=== PATIENT | male | born 1950 | race Caucasian/White ===

== ENCOUNTER 2021-02-19 16:16 | Inpatient (IN) | payer OTHER, SELFPAY ==
[2021-02-19] VITALS (7 sets, daily range): BP systolic 104–157; BP diastolic 37–89; PULSE 78–85; RESP 16–24; TEMP 36.4–38.2; O2SAT 87–94; BMI 26.4; BMI 24.5
--- NOTE | 2021-02-19 16:32 | EKG12_ITS ---
Test Reason : Blood Pressure : / mmHG Vent. Rate : 081 BPM Atrial Rate : 081 BPM P-R Int : 190 ms QRS Dur : 074 ms QT Int : 356 ms P-R-T Axes : 034 -08 -07 degrees QTc Int : 413 ms Somatic/Motion Artifact Normal sinus rhythm Confirmed by CHRISTINA GOMEZ, ELOY ([id number]), editor greeting card SHIRLEY OROPEZA ([id number]) on 02/21/2021 9:38:41 AM Referred By: Confirmed By:ELOY VASQUEZ MD
--- NOTE | 2021-02-19 16:34 | EDS_ITS ---
HPI History of Present Illness Chief Complaint: Shortness of Breath Informant: patient and spouse/S.O. Narrative Narrative: 70-year-old male presenting to the emergency department with shortness of breath. Patient states that 10 days ago he began to feel ill. 8 d ays ago he was tested at pharmacy and tested positive for Covid. He notes fevers chills shortness of breath diarrhea. Decreased p.o. intake and generalized weakness. states they've been monitoring his oxygen levels and it steadily declined until he was about 90% today. [facility] and [facility] that he come to emergency. Patient has no known lung conditions. He has a history of diabetes and hypertension. Patient is unvaccinated against Covid [facility] Medical History (Updated 02/19/21 @ 18:[address] Mani Karimi DO) Diabetes Hypertension Home Medications levothyroxine 25 mcg PO DAILY 02/19/21 [History Last Taken Unknown] lisinopril 20 mg PO DAILY 02/19/21 [History Last Taken Unknown] Allergy/AdvReac Type Severity Reaction Status Date / Time No Known Allergies Allergy Verified 02/19/21 16:19 Social History (Updated 02/19/21 @ 16:[address] Mani Karimi DO) current gender identity: male Smoking Status: Smoker, status unknown substance use type: does not use ROS ROS ED ROS Narrative Generalized fatigue Constitutional Constitutional ED: Reports chills and fever(s); Denies weight loss Eyes Eyes: Denies change in vision or diplopia ENT ENT ED: Denies ear pain, rhinorrhea or sore throat Cardiovascular Cardiovascular: Denies chest pain, orthopnea, palpitations or racing heartbeat Respiratory/Chest Respiratory/Chest: Reports cough, dyspnea, dyspnea on exertion and sputum; Denies orthopnea Gastrointestinal Gastrointestinal: Reports diarrhea and nausea; Denies abdominal pain or vomiting Genitourinary Genitourinary ED: Denies dysuria, hematuria or urinary frequency Musculoskeletal Musculoskeletal: Reports myalgias; Denies arthralgias Integumentary Denies abscess or rash Neurologic Neurologic: Reports headache(s) Psychiatric Psychiatric: Denies anxiety, depression, suicidal ideation or suicidal thoughts Endocrine Endocrinology: Denies polydipsia, polyphagia or polyuria Allergic/Immunologic Allergic/Immunologic ED: Denies mouth swelling, tongue swelling or urticaria EXAM Physical Exam Const Vital Signs: 02/19/21 16:17 02/19/21 16:38 02/19/21 18:09 Temperature 97.6 F L Temperature Source Temporal Pulse Rate 79 85 Respiratory Rate 16 24 H Respiratory Effort Normal Non-Labored Respiratory Depth Normal Respiratory Pattern Normal Blood Pressure 157/89 H 104/37 L Blood Pressure Mean 111 59 Pulse Ox 93 92 92 Oxygen Delivery Method Room Air Room Air Nasal Cannula Oxygen Flow Rate (L/min) 3 Positive well nourished and well developed General Appearance ED: well developed HEENT Reports normocephalic, head/scalp atraumatic, TM's clear and moist mucous membranes atraumatic Tympanic Membrane ED: Yes TM's clear Eyes PERRL and EOMs intact bilaterally Neck no lymphadenopathy, supple and no JVD Resp normal respiratory effort and clear to auscultation bilaterally Cardio regular rate, regular rhythm and no murmurs GI normal to inspection, nondistended, normoactive bowel sounds and non-tender Auscultation: normoactive bowel sounds Palpation: soft Back/Spine no CVA tenderness, normal ROM and normal to inspection Extremity normal to inspection General Extremety ED: Negative for edema General Extremity: Negative for edema Neuro oriented x3 and CN's II-XII intact bilaterally Sensorium / Orientation: alert Motor Exam: strength 5/5 throughout Psych mental status grossly normal Mood & Affect: Negative for depressed or tearful Skin no rashes or lesions noted and no wounds Rashes: no rashes MDM MDM MDM Narrative Medical decision making narrative: Patient ambulates and his oxygen levels dropped from 93% to 89%. However sitting in the bed the patient is 87% on room air was placed on 3 L supplemental oxygen. Patient's white count 6.5. Lactic acid 2.4. My interpretation of his chest x-ray is multifocal areas of inflammation consistent with COVID-19. Glucose 157. Patient received a dose of Decadron. He has [facility] and I am unable to get him home oxygen tonight. I will speak with the hospitalist regarding admission Lab Data Labs: Laboratory Results - last 24 hr 02/19/21 02/19/21 02/19/21 16:40 16:40 16:40 WBC 6.5 RBC 5.46 Hgb 16.0 Hct 49.0 MCV 89.7 MCH 29.3 MCHC 32.7 RDW Std Deviation 42.9 RDW Coeff of Dede 13.1 Plt Count 198 MPV 10.2 Immature Gran % (Auto) 0.600 Neut % (Auto) 67.2 Lymph % (Auto) 18.1 L [place] % (Auto) 13.6 H Eos % (Auto) 0.2 Baso % (Auto) 0.3 Absolute Neuts (auto) 4.4 Absolute Lymphs (auto) 1.17 Nucleated RBC % 0 Sodium 133 L Potassium 4.2 Chloride 100 Carbon Dioxide 28.0 Anion Gap 5 BUN 16 Creatinine 1.39 H Estim Creat Clear Calc 47.16 Est GFR (MDRD) Af Amer 65 Est GFR (MDRD) Non-Af 53 L BUN/Creatinine Ratio 11.5 Glucose 157 H Lactic Acid 2.4 H* Calcium 8.7 Total Bilirubin 0.40 AST 244 H ALT 209 H Alkaline Phosphatase 101 Troponin I High Sens 16 Total Protein 7.6 Albumin 3.5 Globulin 4.1 Albumin/Globulin Ratio 0.9 Radiography Diagnostic Testing: Clinical Impression(s) from Imaging Studies Chest X-Ray 02/19/21 17:19 IMPRESSION: Hazy opacities in the right mid lung could represent infection in the correct clinical setting. Electronically Signed: Ellis Peralta MD at 17:38 EST Tel , Service support , EKG Initial EKG: Attestation: I personally reviewed and interpreted this EKG as follows: Comments: Normal sinus rhythm with a ventricular rate of 81 bpm. Discharge Plan Triage Chief Complaint: Shortness of Breath ED Provider: Mani Karimi Dx/Rx/DC Orders Clinical Impression: COVID-19, Acute hypoxemic respiratory failure due to COVID-19 Prescriptions: No Action lisinopril 20 mg tablet 20 mg PO DAILY RF: 0 levothyroxine 25 mcg tablet 25 mcg PO DAILY RF: 0 [facility] Referrals: Willie Ng MD [STAFF PHYSICIAN] - Disposition Disposition: Acute Care Hospital [facility]
[2021-02-19 17:02] LABS: Absolute Lymphocyte Count 1.17 X10^3/uL (0.83-4.51); Absolute Neutrophil Count 4.4 X10^3/uL (2.0-7.7); Basophil# 0.02 X10^3/uL; Basophil% 0.3 % (0-1); Eosinophil# 0.01 X10^3/uL; Eosinophils% 0.2 % (0-5); Lymphocyte # 1.17 X10^3/ul (0.83-4.51); Lymphocyte % 18.1 % (19-41); Mean Corp Hgb Conc 32.7 g/dL (32-36); Mean Corpuscular Hgb 29.3 pg (27.0-32.0); Mean Corpuscular Volume 89.7 fL (80-94); Mean Platelet Vol. 10.2 fl (6.2-12.0); Monocyte# 0.88 X10^3/uL; Monocyte% 13.6 % (0-10); NRBC Flagged by Analyzer 0 % (0-5); Neutrophil # 4.35 X10^3/uL (2.7-7.7); Neutrophil % 67.2 % (47-70); Platelet Count 198 K/mm3 (150-450); RBC Distribution Width CV 13.1 % (11.6-14.6); RBC Distribution Width SD 42.9 fl (35.1-43.9); Red Blood Count 5.46 M/mm3 (4.6-6.2); White Blood Count 6.5 K/mm3 (4.4-11.0)
--- NOTE | 2021-02-19 17:19 | RAD_ITS ---
INDICATION: cough EXAMINATION/TECHNIQUE: X-RAY - XR Chest 1 View COMPARISON: None. FINDINGS: Hazy opacities in the right midlung. The cardiomediastinal silhouette is unremarkable. No pleural effusion or pneumothorax. Degenerative changes of the thoracic spine. RAD/Chest 1 View (Portable) IMPRESSION: Hazy opacities in the right mid lung could represent infection in the correct clinical setting. Electronically Signed: Ellis Peralta MD at 17:38 EST Tel , Service support ,
[2021-02-19 17:23] LABS: ALB/GLOB Ratio 0.9 RATIO (0.9-2.4); AST(SGOT) 244 U/L (15-37); Alanine Aminotransfer ALT/SGPT 209 U/L (16-61); Albumin, Serum 3.5 g/dL (3.2-5.0); Alkaline Phosphatase 101 U/L (45-117); Anion Gap 5 (5-15); BUN 16 mg/dL (7-18); BUN/Creat Ratio 11.5 RATIO (10-20); Calcium,Total 8.7 mg/dL (8.5-10.1); Chloride 100 mmol/L (98-107); Creatinine, Serum 1.39 mg/dL (0.70-1.30); EST Glomerular Filtration Rate 53 mL/min (>60); Est Glom Filt Rate - Afr Amer 65 mL/min (>60); Estimated Creatinine Clearance 47.16 ml/min; Globulin 4.1 g/dL (2.2-4.2); Glucose 157 mg/dL (74-106); Potassium 4.2 mmol/L (3.5-5.1); Protein, Total 7.6 g/dL (6.4-8.2); Sodium Level 133 mmol/L (136-145); Troponin-I HS 16 pg/mL (3.0-78.0)
[2021-02-19 17:42] LABS: Lactic Acid 2.4 mmol/L (0.4-1.9)
[2021-02-19] MEDS: dexAMETHasone 4 MG Tablet 6 MG PO (17:50)
--- NOTE | 2021-02-19 18:55 | EKG12_ITS ---
Test Reason : Blood Pressure : / mmHG Vent. Rate : 078 BPM Atrial Rate : 078 BPM P-R Int : 166 ms QRS Dur : 078 ms QT Int : 366 ms P-R-T Axes : 004 -04 -10 degrees QTc Int : 417 ms Normal sinus rhythm Normal ECG Confirmed by CHRISTINA GOMEZ, ELOY ([id number]), photographic editor SHIRLEY OROPEZA ([id number]) on 02/21/2021 10:02:04 AM Referred By: YASEMIN Confirmed By:ELOY VASQUEZ MD
--- NOTE | 2021-02-19 19:02 | HP.PCM.HOS_ITS ---
HPI - General General Date of Admission: 02/19/21 HPI Narrative EVANS SANDERSON, is a 70 M with history of diabetes mellitus type 2 and hypertension came to ER with 8 days symptoms of fatigue, worsening cough and exertional dyspnea and chills. Patient denies any fever. Patient has history of smoking but he quit 25 years ago. Patient tested positive of COVID-19 on [facility]. He is not vaccinated but his is vaccinated. His also got sick with the symptoms of COVID-19 but she recovered. He also complains of decreased p.o. intake but denies vomiting or diarrhea. Generalized weakness. His is monitoring pulse ox and it is steadily declined below 90% and therefore came to ER In ED, patient is 87% on room air and 92% on 3 L of oxygen, respiratory 24 per night. Patient does not have leukocytosis, lymphopenia. His creatinine 1.39, baseline 1.2. LA 2.4. ALT AST elevated. Chest x-ray shows haziness in the right midlung. Patient denies chest pain. Troponin negative. [facility] Medical History Diabetes Hypertension Home Medications cholecalciferol (vitamin D3) 100 mcg PO DAILY 02/19/21 [History Last Taken 02/19/21] levothyroxine 25 mcg PO DAILY 02/19/21 [History Last Taken 02/18/21] lisinopril 20 mg PO DAILY 02/19/21 [History Last Taken 02/19/21] metformin 500 mg PO BID 02/19/21 [History Last Taken 02/18/21] Allergy/AdvReac Type Severity Reaction Status Date / Time No Known Allergies Allergy Verified 02/19/21 16:19 Social History current gender identity: male Smoking Status: Smoker, status unknown substance use type: does not use ROS ROS Narrative Constitutional: Reports fatigue and weakness. No fever. HEENT: Reports systems reviewed and no addt'l complaints, except as documented Respiratory/Chest: Exertional dyspnea. Rest as mentioned in HPI Gastrointestinal: Denies coffee ground emesis, hematemesis or vomiting Genitourinary: Denies burning urination or new urinary tract symptoms Musculoskeletal: Reports generalized muscle aches. Neurologic: Denies seizure-like activity skin: No ulcer. No rash Endocrinology: Reports systems reviewed and no addt'l complaints, except as documented Hematologic/Lymphatic: Reports systems reviewed and no addt'l complaints, except as documented Rest 12 ROS are negative except as mentioned in HPI Vital Signs Vital Signs Vital Signs: 02/19/21 16:17 02/19/21 16:38 02/19/21 18:09 Temperature 97.6 F L Temperature Source Temporal Pulse Rate 79 85 Respiratory Rate 16 24 H Respiratory Effort Normal Non-Labored Respiratory Depth Normal Respiratory Pattern Normal Blood Pressure 157/89 H 104/37 L Blood Pressure Mean 111 59 Pulse Ox 93 92 92 Oxygen Delivery Method Room Air Room Air Nasal Cannula Oxygen Flow Rate (L/min) 3 02/19/21 18:53 Temperature 97.8 F Temperature Source Temporal Pulse Rate 84 Respiratory Rate 24 H Respiratory Effort Respiratory Depth Respiratory Pattern Blood Pressure 135/83 H Blood Pressure Mean 100 Pulse Ox 93 Oxygen Delivery Method Oxygen Flow Rate (L/min) Weight Weight: 173 lb 11.588 oz Body Mass Index (BMI) 26.4 Physical Exam Narrative General: Fatigue. Alert, Oriented x3, Cooperative HEENT: Atraumatic, PERRLA, EOMI, Normocephalic Oral: No Gingival or Mucosal Lesions/ Ulcerations Neck: Supple, No JVD, Negative Carotid Bruits Lungs: Air entry diminished in bilateral lung bases. Bilateral crepitations. Mild tachypnea and hypoxia. Cardiovascular: Regular rate, Regular Rhythm, Normal S1, Normal S2, No murmurs Abdomen: Bowel Sounds Present, Soft, Non Tender, Non-Distended : No renal angle tenderness. No suprapubic tenderness. Extremities: No edema, Capillary Refill Less than 3 Seconds Skin: No rashes, No breakdown Musculoskeletal: No Tenderness to Palpation of Joints or Extremities Neurological: Cranial nerves II-XII grossly intact, DTR 2+/4 and Symmetrical, Neuro grossly intact Psych/Mental Status: Normal Affect, Appropriate. Results Lab / Micro Data Result Diagrams: 02/19/21 16:40 02/19/21 16:40 Labs: Laboratory Results - last 24 hr 02/19/21 16:40: WBC 6.5, RBC 5.46, Hgb 16.0, Hct 49.0, MCV 89.7, MCH 29.3, MCHC 32.7, RDW Std Deviation 42.9, RDW Coeff of Dede 13.1, Plt Count 198, MPV 10.2, Immature Gran % (Auto) 0.600, Neut % (Auto) 67.2, Lymph % (Auto) 18.1 L, [place] % (Auto) 13.6 H, Eos % (Auto) 0.2, Baso % (Auto) 0.3, Absolute Neuts (auto) 4.4, Absolute Lymphs (auto) 1.17, Nucleated RBC % 0 02/19/21 16:40: Sodium 133 L, Potassium 4.2, Chloride 100, Carbon Dioxide 28.0, Anion Gap 5, BUN 16, Creatinine 1.39 H, Estim Creat Clear Calc 47.16, Est GFR (MDRD) Af Amer 65, Est GFR (MDRD) Non-Af 53 L, BUN/Creatinine Ratio 11.5, Glucose 157 H, Calcium 8.7, Total Bilirubin 0.40, AST 244 H, ALT 209 H, Alkaline Phosphatase 101, Troponin I High Sens 16, Total Protein 7.6, Albumin 3.5, Globulin 4.1, Albumin/Globulin Ratio 0.9 02/19/21 16:40: Lactic Acid 2.4 H* Radiology Impression Chest X-Ray 02/19/21 17:19 IMPRESSION: Hazy opacities in the right mid lung could represent infection in the correct clinical setting. Electronically Signed: Ellis Peralta MD at 17:38 EST Tel , Service support , Assessment & Plan Assessment/Plan (1) Acute hypoxemic respiratory failure due to COVID-19: PLAN: 1. Acute hypoxic respiratory failure secondary to right lung COVID- 19 pneumonia: Patient is being admitted on [facility] floor. Oxygen therapy to keep pulse ox more than 90%. Patient is started on dexamethasone. Will continue it. Is out of window of remdesivir. If patient needs airflow, BiPAP or high oxygen requirement, will need ID consult for baricitinib. Incentive spirometry, Mucinex and Pep. Pneumonia work-up including urinary antigens and sputum culture ordered. Rapid Covid antigen ordered as he was tested [facility] outside [facility]. Inflammatory markers including procalcitonin ordered. Lovenox 30 mg subcu twice daily. 2. Diabetes mellitus type 2: Hold Metformin. Accu-Cheks vesicocele at bedtime, regimen of sliding scale. 3. Hypertension and hypothyroidism: Hold lisinopril and resume once creatinine is on baseline. TSH tomorrow a.m. Levothyroxine continued. 4. CKD stage IIIa: IV fluid Ringer lactate. Monitor kidney function. Patient is dehydrated. Living will/advanced directive/end of life care: Patient does have living will or advanced directive. His is power of prosecuting attorney for health. After discussion of benefits/risks procedures involved with full code, DNR CC arrest and DNR CC, the patient and his opted for full code. Patient does want artificial life support including intubation, tube feed, ventilator and/chest compression, central venous catheter, vasopressor and DC shock if needed Total time spent in [id number] encounter in discussion of advanced directive 16 minutes. Charges/Coding Visit Charges Inpatient E&M: 60336 Init Hosp L3 Procedures Hospitalists Procedures: 63002 Advncd Care Plan 30 Min
[2021-02-19 19:20] LABS: International Normalized Ratio 0.9; Prothrombin Time (Protime)PT. 11.6 SECONDS (11.7-14.9)
[2021-02-19 19:21] LABS: Fibrinogen 486 mg/dl (203-444)
[2021-02-19 19:36] LABS: BNP,B-Type NATRIURETIC PEPTIDE 24.9 pg/mL (0-100); Magnesium 2.3 mg/dL (1.6-2.6)
[2021-02-19 19:37] LABS: CPK Total, Creatine Kinase 81 U/L (39-308); LDH 498 U/L (87-241)
[2021-02-19 19:42] LABS: D-Dimer Quantitative (DVT/PE) 0.66 FEU/ug/m (0.27-0.49)
[2021-02-19 19:45] LABS: Procalcitonin 0.11 ng/mL (0.00-0.09)
--- NOTE | 2021-02-19 20:20 | PCS.PANDOC ---
PANDEMIC DOCUMENTATION INITIATED: Date: 11/20/2020 Time: 1900 Emergency documentation initiated 02/19/21 @ 2020
[2021-02-19 20:52] LABS: Reflex Lactate? Y
[2021-02-19] MEDS: Lactated Ringers 1,000 ML 100 ML IV (20:57)
[2021-02-19] MEDS: guaiFENesin 1,200 MG Tablet 1200 MG PO (20:57)
[2021-02-19] MEDS: Acetaminophen 325 MG Tablet 650 MG PO (20:57)
[2021-02-19] MEDS: Enoxaparin 30 MG/0.3 ML Syringe SC (20:57)
[2021-02-19] MEDS: 0.9% Saline Lock 10 ML Syringe IV (21:49)
[2021-02-20] VITALS (7 sets, daily range): BP systolic 122–139; BP diastolic 71–86; PULSE 61–66; RESP 16–18; TEMP 36.2–36.6; O2SAT 92–97
[2021-02-20] MEDS: Levothyroxine 25 MCG TABLET PO (06:28)
[2021-02-20 06:45] LABS: Bedside Glucose 206 mg/dL (70-110)
[2021-02-20 08:02] LABS: Absolute Lymphocyte Count 0.99 X10^3/uL (0.83-4.51); Absolute Neutrophil Count 2.2 X10^3/uL (2.0-7.7); Basophil# 0.01 X10^3/uL; Basophil% 0.3 % (0-1); Hematocrit 42.8 % (40-54); Hemoglobin 14.3 g/dL (13.0-16.5); Lymphocyte # 0.99 X10^3/ul (0.83-4.51); Lymphocyte % 24.9 % (19-41); Mean Corp Hgb Conc 33.4 g/dL (32-36); Mean Corpuscular Hgb 29.9 pg (27.0-32.0); Mean Corpuscular Volume 89.4 fL (80-94); Mean Platelet Vol. 10.5 fl (6.2-12.0); Monocyte# 0.75 X10^3/uL; Monocyte% 18.9 % (0-10); NRBC Flagged by Analyzer 0 % (0-5); Neutrophil # 2.18 X10^3/uL (2.7-7.7); Neutrophil % 54.9 % (47-70); POSITIVE MORPHOLOGY YES; Platelet Count 186 K/mm3 (150-450); RBC Distribution Width SD 42.8 fl (35.1-43.9); Red Blood Count 4.79 M/mm3 (4.6-6.2)
[2021-02-20 08:03] LABS: Differential Indicated SCAN CRITERIA MET
[2021-02-20 08:25] LABS: Atypical Lymphocyte 1+ %
[2021-02-20 09:26] LABS: ALB/GLOB Ratio 0.7 RATIO (0.9-2.4); AST(SGOT) 278 U/L (15-37); Alanine Aminotransfer ALT/SGPT 253 U/L (16-61); Albumin, Serum 2.6 g/dL (3.2-5.0); Alkaline Phosphatase 85 U/L (45-117); Anion Gap 9 (5-15); BUN 22 mg/dL (7-18); BUN/Creat Ratio 17.1 RATIO (10-20); Calcium,Total 8.2 mg/dL (8.5-10.1); Chloride 102 mmol/L (98-107); Creatinine, Serum 1.29 mg/dL (0.70-1.30); EST Glomerular Filtration Rate 58 mL/min (>60); Est Glom Filt Rate - Afr Amer 71 mL/min (>60); Estimated Creatinine Clearance 50.81 ml/min; Globulin 3.8 g/dL (2.2-4.2); Glucose 179 mg/dL (74-106); Potassium 4.5 mmol/L (3.5-5.1); Protein, Total 6.4 g/dL (6.4-8.2); Sodium Level 134 mmol/L (136-145); Thyroid Stim Hormone (TSH) 1.39 uIU/mL (0.358-3.74)
[2021-02-20] MEDS: dexAMETHasone 4 MG Tablet 6 MG PO (10:35)
[2021-02-20] MEDS: guaiFENesin 1,200 MG Tablet 1200 MG PO ×2 (10:35→22:43)
[2021-02-20] MEDS: Enoxaparin 30 MG/0.3 ML Syringe SC ×2 (10:35→22:50)
[2021-02-20] MEDS: Cholecalciferol (VIT D3) 25 MCG TABLET (1,000 UNITS) 100 MCG PO (10:35)
--- NOTE | 2021-02-20 14:23 | PCM.PN.HOSP ---
Subjective Subjective Doing well, no issues overnight. Feels better than when he came in. Objective Data Objective Data Vital Signs: Vital Signs Temp Pulse Resp BP Pulse Ox 97.7 F L 63 16 127/71 H 94 02/20/21 10:37 02/20/21 10:37 02/20/21 10:37 02/20/21 10:37 02/20/21 10:37 Oxygen Flow Rate (L/min) 2 Oxygen Delivery Method Nasal Cannula Weight: 161 lb 13.109 oz Body Mass Index (BMI) 24.5 Intake & Output: Intake and Output for Last 24 Hours 02/19/21 02/20/21 02/21/21 03:59 03:59 03:59 Intake Total 200 / 200 1260 / 1260 Output Total 350 / 350 650 / 650 Balance -150 / -150 610 / 610 Medical Nutrition Assessment Dietitian: Malnutrition Criteria Met Start: 02/20/21 10:17 Freq: Status: Active Protocol: Document 02/20/21 10:17 AG (Rec: 02/20/21 10:17 AG Desktop) Nutrition Malnutrition Evidence of Malnutrition Exists Yes Malnutrition (severe): Acute Illness/Injury Evidenced By Suboptimal Energy Intake ( Severe),Weight Loss (Severe) Clinical Problem Acute Disease or Injury Related Malnutrition Etiology severe, acute malnutrition r/t inadequate energy intake during COVID-19 illness Signs/Symptoms as evidenced by estimated PO intake meeting <50% of estimated nutritional needs x 1 week, unintentional wt loss of 8.2#/4.8% x 1 week Status Active Problem Recommendation Dietitian Recommendations/Changes Will change diet to carbohydrate controlled and add 4oz Glucerna ONS w/ meals for additional calories/ protein if consumed d/t acute malnutrition Lab / Micro Data Result Diagrams: 02/20/21 07:25 02/20/21 07:25 Labs: Laboratory Results - last 24 hr 02/19/21 16:40: WBC 6.5, RBC 5.46, Hgb 16.0, Hct 49.0, MCV 89.7, MCH 29.3, MCHC 32.7, RDW Std Deviation 42.9, RDW Coeff of Dede 13.1, Plt Count 198, MPV 10.2, Immature Gran % (Auto) 0.600, Neut % (Auto) 67.2, Lymph % (Auto) 18.1 L, [place] % (Auto) 13.6 H, Eos % (Auto) 0.2, Baso % (Auto) 0.3, Absolute Neuts (auto) 4.4, Absolute Lymphs (auto) 1.17, Nucleated RBC % 0 02/19/21 16:40: Sodium 133 L, Potassium 4.2, Chloride 100, Carbon Dioxide 28.0, Anion Gap 5, BUN 16, Creatinine 1.39 H, Estim Creat Clear Calc 47.16, Est GFR (MDRD) Af Amer 65, Est GFR (MDRD) Non-Af 53 L, BUN/Creatinine Ratio 11.5, Glucose 157 H, Calcium 8.7, Total Bilirubin 0.40, AST 244 H, ALT 209 H, Alkaline Phosphatase 101, Troponin I High Sens 16, Total Protein 7.6, Albumin 3.5, Globulin 4.1, Albumin/Globulin Ratio 0.9 02/19/21 16:40: Lactic Acid 2.4 H* 02/19/21 16:40: Magnesium 2.3 02/19/21 16:40: PT 11.6 L, INR 0.9, Fibrinogen 486 H, D-Dimer Quant (PE/DVT) 0.66 H* 02/19/21 16:40: Lactate Dehydrogenase 498 H, Total Creatine Kinase 81, C-React Prot Ext Range 16.00 H 02/19/21 16:40: B-Natriuretic Peptide 24.9 02/19/21 16:40: Procalcitonin 0.11 H 02/19/21 20:52: Lactic Acid 1.0 02/20/21 06:30: POC Glucose 206 H 02/20/21 07:25: Sodium 134 L, Potassium 4.5, Chloride 102, Carbon Dioxide 23.0, Anion Gap 9, BUN 22 H, Creatinine 1.29, Estim Creat Clear Calc 50.81, Est GFR (MDRD) Af Amer 71, Est GFR (MDRD) Non-Af 58 L, BUN/Creatinine Ratio 17.1, Glucose 179 H, Calcium 8.2 L, Phosphorus 4.0, Total Bilirubin 0.30, AST 278 H, ALT 253 H, Alkaline Phosphatase 85, Total Protein 6.4, Albumin 2.6 L, Globulin 3.8, Albumin/Globulin Ratio 0.7 L, TSH 1.39 02/20/21 07:25: WBC 4.0 L, RBC 4.79, Hgb 14.3, Hct 42.8, MCV 89.4, MCH 29.9, MCHC 33.4, RDW Std Deviation 42.8, RDW Coeff of Dede 13.0, Plt Count 186, MPV 10.5, Immature Gran % (Auto) 1.000 H, Neut % (Auto) 54.9, Lymph % (Auto) 24.9, [place] % (Auto) 18.9 H, Eos % (Auto) 0.0, Baso % (Auto) 0.3, Absolute Neuts (auto) 2.2, Absolute Lymphs (auto) 0.99, Nucleated RBC % 0, Atypical Lymphocytes 1+ Micro: Microbiology 02/19/21 21:40 Urine, Clean Catch Legionella Antigen - Final 02/19/21 21:40 Urine, Clean Catch Streptococcus pneumoniae Antigen (M - Final 02/19/21 20:30 Nasal Secretion SARS-CoV-2 Antigen (Rapid) - Final SARS-CoV-2 (COVID 19) Radiography Diagnostic Testing: Radiology Impression Chest X-Ray 02/19/21 17:19 IMPRESSION: Hazy opacities in the right mid lung could represent infection in the correct clinical setting. Electronically Signed: Ellis Peralta MD at 17:38 EST Tel , Service support , Physical Exam Const alert, oriented x3 and no apparent distress General Appearance: cooperative HEENT normocephalic and moist oral mucous membranes Eyes PERRL, EOMs intact bilaterally and conjunctivae normal Neck supple and no JVD Resp normal respiratory effort, no retractions and no use of accessory muscles Auscultation: crackles bilateral (Mild) base; Negative for rales, rhonchi or wheezes Cardio regular rate, regular rhythm, S1 normal heart sound, S2 normal heart sound and no murmurs GI soft to palpation, non-tender and non-distended; Negative for hepatosplenomegaly Extremity no clubbing, cyanosis or edema Skin no rashes or lesions noted Neuro no focal motor deficits and no sensory deficits noted Psych affect normal Appearance: appropriate Assessment & Plan Assessment/Plan (1) Acute hypoxemic respiratory failure due to COVID-19: PLAN: 1. Acute hypoxic respiratory failure secondary to right lung COVID-19 pneumonia -He is at around the 10-day dave on admission from symptoms therefore does not qualify for remdesivir -Continue with Decadron -We will continue to monitor respiratory status, is maintaining his oxygen saturations on 2 L nasal cannula, if he does get worse given the crackles may give him Lasix to diurese. He did come in with slightly elevated creatinine to 1.39 therefore we will give him another day of recovery prior to considering diuresis 2. Diabetes mellitus type 2/CKD 3a -Hold his Metformin, will place him on sliding scale insulin as well as long-acting insulin -Accu-Cheks AC at bedtime -Given the Decadron, will make adjustments as necessary 3. HTN -Blood pressure stable -We will hold lisinopril secondary to his elevated creatinine on admission and the potential need for Lasix 4. Hypothyroidism -Stable -Continue with Synthroid DVT: Lovenox Charges/Coding Visit Charges Inpatient E&M: 14675 Subs Hosp L2
--- NOTE | 2021-02-20 14:50 | CASEMGMT ---
Addendum entered by Radha Haley 02/20/21 15:31: TC to pt , she does not have the pt info still. Will wait until pt phone is charged and check back with pt for the positive covid result. Original Note: RN CM Assessment: Face to Face with pt for initial transition planning/care coordination assessment. RN CM introduced self and role at [facility], pt voices understanding and consents to assessment. Pt is A/O x4 and answers all questions appropriately at this time. Pt lying in bed with O2 on in no distress. Care providers, pharmacy, and demographics verified/updated. Admitting Dx: COVID 19 PNA PCP: Amy Sanders [place] Specialists: Pt denies. [facility]erred [facility] Insurance: [facility] benefit< MMO Prescription Benefit: yes LW/HPOA: Pt states he has a LW/DPOA and his is his DPOA, Beverly Benavidez. LNOK: Beverly Benavidez, Living Arrangements: Pt lives with in a split level home with 3 steps to enter. Pt reports being I in ADL' s and denies concerns at home. Transportation: Pt drives self and denies concerns with transportation. DME/HHC/SNF: Pt has grab bars in the bathroom, no other DME. Pt denies hx of HHC or SNF stays. Pt states his is also positive for COVID. States he was tested at [facility]. Pt unable to email this RN CM the result as his phone battery is . He states it is ok for this RN CM to contact his for the information needed. Pt does have family who can provide him with groceries and supplies. Pt has no preference for DME company, should pt need O2 at dc. Pt states no concerns with going home at time of dc. Pt states no further concerns/needs. CM to follow. Advised pt to ask CM if any further question/concerns/needs arise, voices understanding. Pt Goal: Home Plan: Home
[2021-02-20] MEDS: Insulin Lispro 100 UNIT/ML INSULN.PEN SC ×2 (15:37→22:42)
[2021-02-20 16:01] LABS: Bedside Glucose 221 mg/dL (70-110)
[2021-02-20 23:06] LABS: Bedside Glucose 209 mg/dL (70-110)
[2021-02-21] VITALS (7 sets, daily range): BP systolic 120–138; BP diastolic 70–81; PULSE 62–73; RESP 18; TEMP 36.6–38.2; O2SAT 86–95
--- NOTE | 2021-02-21 04:08 | PCS.PANDOC ---
PANDEMIC DOCUMENTATION INITIATED: Date: 11/20/2020 Time: 190
[2021-02-21] MEDS: Levothyroxine 25 MCG TABLET PO (06:39)
[2021-02-21 06:51] LABS: Bedside Glucose 141 mg/dL (70-110)
[2021-02-21 08:25] LABS: ALB/GLOB Ratio 0.7 RATIO (0.9-2.4); AST(SGOT) 183 U/L (15-37); Alanine Aminotransfer ALT/SGPT 242 U/L (16-61); Albumin, Serum 2.8 g/dL (3.2-5.0); Alkaline Phosphatase 95 U/L (45-117); Anion Gap 6 (5-15); BUN 26 mg/dL (7-18); BUN/Creat Ratio 19.7 RATIO (10-20); Calcium,Total 8.6 mg/dL (8.5-10.1); Chloride 102 mmol/L (98-107); Creatinine, Serum 1.32 mg/dL (0.70-1.30); EST Glomerular Filtration Rate 57 mL/min (>60); Est Glom Filt Rate - Afr Amer 69 mL/min (>60); Estimated Creatinine Clearance 49.66 ml/min; Glucose 130 mg/dL (74-106); Potassium 4.1 mmol/L (3.5-5.1); Protein, Total 6.8 g/dL (6.4-8.2); Sodium Level 136 mmol/L (136-145)
--- NOTE | 2021-02-21 10:30 | PN.HOSP_ITS ---
Subjective Subjective Doing well, no issues overnight. On his incentive spirometry he gets about 600 cc. We will continue to encourage incentive spirometry use as well as Pep use. Objective Data Objective Data Vital Signs: Vital Signs Temp Pulse Resp BP Pulse Ox 98.5 F 62 18 132/77 H 93 02/21/21 06:30 02/21/21 06:30 02/21/21 06:30 02/21/21 06:30 02/21/21 08:03 Oxygen Flow Rate (L/min) 2 Oxygen Delivery Method Nasal Cannula Weight: 161 lb 13.109 oz Body Mass Index (BMI) 24.5 Intake & Output: Intake and Output for Last 24 Hours 02/20/21 02/21/21 02/22/21 03:59 03:59 03:59 Intake Total 200 / 200 1260 / 1260 Output Total 350 / 350 650 / 650 Balance -150 / -150 610 / 610 Medical Nutrition Assessment Dietitian: Malnutrition Criteria Met Start: 02/20/21 10:17 Freq: Status: Active Protocol: Document 02/20/21 10:17 AG (Rec: 02/20/21 10:17 AG Desktop) Nutrition Malnutrition Evidence of Malnutrition Exists Yes Malnutrition (severe): Acute Illness/Injury Evidenced By Suboptimal Energy Intake ( Severe),Weight Loss (Severe) Clinical Problem Acute Disease or Injury Related Malnutrition Etiology severe, acute malnutrition r/t inadequate energy intake during COVID-19 illness Signs/Symptoms as evidenced by estimated PO intake meeting <50% of estimated nutritional needs x 1 week, unintentional wt loss of 8.2#/4.8% x 1 week Status Active Problem Recommendation Dietitian Recommendations/Changes Will change diet to carbohydrate controlled and add 4oz Glucerna ONS w/ meals for additional calories/ protein if consumed d/t acute malnutrition Lab / Micro Data Result Diagrams: 02/20/21 07:25 02/21/21 07:10 Labs: Laboratory Results - last 24 hr 02/20/21 15:35: POC Glucose 221 H 02/20/21 22:38: POC Glucose 209 H 02/21/21 06:37: POC Glucose 141 H 02/21/21 07:10: Sodium 136, Potassium 4.1, Chloride 102, Carbon Dioxide 28.0, Anion Gap 6, BUN 26 H, Creatinine 1.32 H, Estim Creat Clear Calc 49.66, Est GFR (MDRD) Af Amer 69, Est GFR (MDRD) Non-Af 57 L, BUN/Creatinine Ratio 19.7, Glucose 130 H, Calcium 8.6, Total Bilirubin 0.40, AST 183 H, ALT 242 H, Alkaline Phosphatase 95, Total Protein 6.8, Albumin 2.8 L, Globulin 4.0, Albumin/Globulin Ratio 0.7 L Micro: Microbiology 02/19/21 21:40 Urine, Clean Catch Legionella Antigen - Final 02/19/21 21:40 Urine, Clean Catch Streptococcus pneumoniae Antigen (M - Final 02/19/21 20:30 Nasal Secretion SARS-CoV-2 Antigen (Rapid) - Final SARS-CoV-2 (COVID 19) Physical Exam Const alert, oriented x3 and no apparent distress General Appearance: cooperative HEENT normocephalic and moist oral mucous membranes Eyes PERRL, EOMs intact bilaterally and conjunctivae normal Neck supple and no JVD Resp normal respiratory effort, no retractions and no use of accessory muscles Auscultation: Negative for crackles, rales, rhonchi or wheezes Cardio regular rate, regular rhythm, S1 normal heart sound, S2 normal heart sound and no murmurs GI soft to palpation, non-tender and non-distended; Negative for hepatosplenomegaly Extremity no clubbing, cyanosis or edema Skin no rashes or lesions noted Neuro no focal motor deficits and no sensory deficits noted Psych affect normal Appearance: appropriate Assessment & Plan Assessment/Plan (1) Acute hypoxemic respiratory failure due to COVID-19: PLAN: 1. Acute hypoxic respiratory failure secondary to right lung COVID-19 pneumonia -He is at around the 10-day dave on admission from symptoms therefore does not qualify for remdesivir -Continue with Decadron -Respiratory status is stable will obtain an ambulatory pulse ox today -Discussed with him possible discharge over the next 24 to 48 hours assuming his oxygen status remained stable 2. Diabetes mellitus type 2/CKD 3a -Hold his Metformin, will place him on sliding scale insulin as well as long- acting insulin -Accu-Cheks AC at bedtime -Given the Decadron, will make adjustments as necessary 3. HTN -Blood pressure stable -We will hold lisinopril secondary to his elevated creatinine on admission and t he potential need for Lasix 4. Hypothyroidism -Stable -Continue with Synthroid DVT: Lovenox Charges/Coding Visit Charges Inpatient E&M: 05706 Subs Hosp L2
[2021-02-21] MEDS: Acetaminophen 325 MG Tablet 650 MG PO (11:24)
[2021-02-21] MEDS: guaiFENesin 1,200 MG Tablet 1200 MG PO ×2 (11:25→20:53)
[2021-02-21] MEDS: Enoxaparin 30 MG/0.3 ML Syringe SC ×2 (11:25→20:53)
[2021-02-21] MEDS: Insulin Lispro 100 UNIT/ML INSULN.PEN SC ×3 (11:26→20:55)
[2021-02-21] MEDS: Cholecalciferol (VIT D3) 25 MCG TABLET (1,000 UNITS) 100 MCG PO (11:26)
[2021-02-21] MEDS: dexAMETHasone 4 MG Tablet 6 MG PO (11:26)
[2021-02-21 12:06] LABS: Bedside Glucose 233 mg/dL (70-110)
--- NOTE | 2021-02-21 12:54 | CASEMGMT ---
CHARLEEN CM into pt room to try and obtain positive COVID from [facility]. Pt link has . Pt was tested at [facility] as well.
[2021-02-21 16:25] LABS: Bedside Glucose 175 mg/dL (70-110)
[2021-02-21] MEDS: 0.9% Saline Lock 10 ML Syringe IV (20:53)
[2021-02-21 21:06] LABS: Bedside Glucose 269 mg/dL (70-110)
[2021-02-22 02:32] VITALS: BP 106/70; PULSE 61; RESP 18; TEMP 36.6; O2SAT 94
[2021-02-22] MEDS: Levothyroxine 25 MCG TABLET PO (05:57)
[2021-02-22 06:06] LABS: Bedside Glucose 138 mg/dL (70-110)
[2021-02-22 07:12] LABS: ALB/GLOB Ratio 0.7 RATIO (0.9-2.4); AST(SGOT) 99 U/L (15-37); Alanine Aminotransfer ALT/SGPT 186 U/L (16-61); Albumin, Serum 2.7 g/dL (3.2-5.0); Alkaline Phosphatase 101 U/L (45-117); Anion Gap 4 (5-15); BUN 25 mg/dL (7-18); BUN/Creat Ratio 22.1 RATIO (10-20); Calcium,Total 8.5 mg/dL (8.5-10.1); Chloride 105 mmol/L (98-107); Creatinine, Serum 1.13 mg/dL (0.70-1.30); EST Glomerular Filtration Rate 68 mL/min (>60); Est Glom Filt Rate - Afr Amer 82 mL/min (>60); Estimated Creatinine Clearance 58.01 ml/min; Globulin 3.9 g/dL (2.2-4.2); Glucose 143 mg/dL (74-106); Potassium 4.3 mmol/L (3.5-5.1); Protein, Total 6.6 g/dL (6.4-8.2); Sodium Level 136 mmol/L (136-145)
[2021-02-22 07:59] VITALS: O2SAT 94
[2021-02-22 10:00] VITALS: BP 142/73; PULSE 73; RESP 18; TEMP 36.6; O2SAT 93
[2021-02-22] MEDS: Cholecalciferol (VIT D3) 25 MCG TABLET (1,000 UNITS) 100 MCG PO (10:08)
[2021-02-22] MEDS: dexAMETHasone 4 MG Tablet 6 MG PO (10:09)
[2021-02-22] MEDS: Enoxaparin 30 MG/0.3 ML Syringe SC (10:09)
[2021-02-22] MEDS: guaiFENesin 1,200 MG Tablet 1200 MG PO (10:09)
[2021-02-22 10:15] VITALS: O2SAT 86; O2SAT 89; O2SAT 91
[2021-02-22] MEDS: Insulin Lispro 100 UNIT/ML INSULN.PEN SC (11:52)
--- NOTE | 2021-02-22 11:56 | PCM.DC ---
Discharge Instructions Diet Discharge Diet: 1800 Calorie Control Diet Activity Discharge Activity: Return to Normal Activity Additional Activity Instructions:: Quarantine for 20 days after COVID symptoms began Follow Up Care Test Results: Test results from this visit will be discussed in further detail at your follow-up appointment, if applicable. Discharge Plan Admission Admit Date/Time: 02/19/21 18:56 Primary Reason for Your Visit: COVID-19 pneumonia Attending Provider: Manuel Limon Primary Care Provider: [facility],[place] Instructions Additional Instructions / Restrictions: Use oxygen at 2 liters while ambulating Discharge Orders/Prescriptions Prescriptions: New dexamethasone 2 mg tablet 6 mg PO DAILY Qty: 18 RF: 0 Continued lisinopril 20 mg tablet 20 mg PO DAILY RF: 0 levothyroxine 25 mcg tablet 25 mcg PO DAILY RF: 0 metformin 500 mg Tablet 500 mg PO BID RF: 0 cholecalciferol (vitamin D3) 50 mcg (2,000 unit) Capsule 100 mcg PO DAILY RF: 0 Referrals / Follow Up: Willie Ng MD [STAFF PHYSICIAN] - See Referral Note (in two weeks) [facility],[place] [Primary Care Provider] - Disposition Disposition (needs filled in before D/C Order can be placed): Home, Self Care
[2021-02-22 12:00] LABS: Bedside Glucose 241 mg/dL (70-110)
[2021-02-22 12:02] VITALS: BP 140/74; PULSE 74; RESP 18; TEMP 36.7; O2SAT 91
--- NOTE | 2021-02-22 12:03 | PCM.DC.SUM ---
Providers Date of Admission: 02/19/21 Date of Discharge: 02/22/21 Primary Care Physician: [facility] Reason For Visit: COVID19 PNEUMONIA Diagnosis Discharge Diagnosis (1) Acute hypoxemic respiratory failure due to COVID-19: Status: Acute Code(s): U07.1 - COVID-19; J96.01 - Acute respiratory failure with hypoxia Plan: 1. COVID-19 pneumonia #2 acute hypoxic respiratory failure secondary to COVID-19 #3 type 2 diabetes #4 chronic kidney disease 3 AA #5 essential hypertension #6 hypothyroidism #7 severe, acute malnutrition secondary to inadequate energy intake during COVID-19 illness as evidenced by estimated p.o. intake meeting less than 50% of estimated nutritional needs x1 week, unintentional weight loss of 8.2 pounds x 1 week-patient's diet was changed to carbohydrate controlled and 4 ounces of Glucerna LNS with meals were added for additional calories/protein if consumed due to acute malnutrition Medications at Discharge Home Medications cholecalciferol (vitamin D3) 100 mcg PO DAILY 02/19/21 levothyroxine 25 mcg PO DAILY 02/19/21 lisinopril 20 mg PO DAILY 02/19/21 metformin 500 mg PO BID 02/19/21 dexamethasone 6 mg PO DAILY #18 tab 02/22/21 Hospital Course Operations None Procedures None Summary of Care Provided Minutes Spent on Discharge: 31 Hospital Course: 70-year-old female was seen in the emergency room with a chief complaint of shortness of breath, she stated that 10 days ago she began to feel ill and she was tested 8 days ago to pharmacy and tested positive for Covid. Patient had decreased p.o. intake and generalized weakness. When patient ambulated in the ER, her oxygen levels dropped from 93 to 89%. Sitting in bed the patient's pulse ox was 87% on room air. Patient was given a dose of Decadron in the ER, he was admitted to [place] [address], he was treated with Decadron, he was not felt to be a candidate for remdesivir treatment, patient improved during his hospitalization. On 02/22/2021, patient was seen and examined: On examination he appeared in good health and spirits. Vital signs as documented. Skin warm and dry and without overt rashes. Neck without JVD, neck was supple, trachea midline, thyroid was normal. Lungs clear bilaterally, normal air movement was noted. Heart exam notable for regular rhythm, normal sounds and absence of murmurs, rubs or gallops. Abdomen unremarkable and without evidence of organomegaly, masses, or abdominal aortic enlargement. Bowel sounds are present, abdomen is not distended. Extremities nonedematous, no cyanosis was noted, no clubbing was noted. Neuro: Cranial nerves II through XII are grossly intact, no focal motor deficits were noted, sensation to light touch and pinprick intact, motor exam 5/5 throughout. Psych: Patient is alert and oriented x3, he does not appear anxious or depressed, he does not appear agitated. On 02/22/2021, patient was felt to be stable for discharge home, he required 2 L of oxygen while ambulating and was expected to use this oxygen and and outside the home. Medical Records Data Medical Nutrition Assessment Dietitian: Malnutrition Criteria Met Start: 02/20/21 10:17 Freq: Status: Active Protocol: Document 02/20/21 10:17 AG (Rec: 02/20/21 10:17 AG Desktop) Nutrition Malnutrition Evidence of Malnutrition Exists Yes Malnutrition (severe): Acute Illness/Injury Evidenced By Suboptimal Energy Intake ( Severe),Weight Loss (Severe) Clinical Problem Acute Disease or Injury Related Malnutrition Etiology severe, acute malnutrition r/t inadequate energy intake during COVID-19 illness Signs/Symptoms as evidenced by estimated PO intake meeting <50% of estimated nutritional needs x 1 week, unintentional wt loss of 8.2#/4.8% x 1 week Status Active Problem Recommendation Dietitian Recommendations/Changes Will change diet to carbohydrate controlled and add 4oz Glucerna ONS w/ meals for additional calories/ protein if consumed d/t acute malnutrition Weight / BMI Weight Weight: 73.4 kg Body Mass Index (BMI) 24.5 ABG / Lab / Microbiology Data Result Diagrams: 02/20/21 07:25 02/22/21 06:02 Laboratory: Laboratory Results - last 24 hr 02/21/21 11:17: POC Glucose 233 H 02/21/21 15:48: POC Glucose 175 H 02/21/21 20:47: POC Glucose 269 H 02/22/21 05:56: POC Glucose 138 H 02/22/21 06:02: Sodium 136, Potassium 4.3, Chloride 105, Carbon Dioxide 27.0, Anion Gap 4 L, BUN 25 H, Creatinine 1.13, Estim Creat Clear Calc 58.01, Est GFR (MDRD) Af Amer 82, Est GFR (MDRD) Non-Af 68, BUN/Creatinine Ratio 22.1 H, Glucose 143 H, Calcium 8.5, Total Bilirubin 0.40, AST 99 H, ALT 186 H, Alkaline Phosphatase 101, Total Protein 6.6, Albumin 2.7 L, Globulin 3.9, Albumin/Globulin Ratio 0.7 L 02/22/21 11:50: POC Glucose 241 H Microbiology: Microbiology 02/19/21 21:40 Urine, Clean Catch Legionella Antigen - Final 02/19/21 21:40 Urine, Clean Catch Streptococcus pneumoniae Antigen (M - Final 02/19/21 20:30 Nasal Secretion SARS-CoV-2 Antigen (Rapid) - Final SARS-CoV-2 (COVID 19) D/C Instructions Discharge Diet: 1800 Calorie Control Diet Additional Activity Instructions: Quarantine for 20 days after COVID symptoms began Meaningful Use Info Meaningful Use Diagnoses (Choose all that apply): None applicable Discharge Plan Admission Admit Date/Time: 02/19/21 18:56 Primary Reason for Your Visit: COVID-19 pneumonia Attending Provider: Manuel Limon Primary Care Provider: [facility],[place] Instructions Additional Instructions / Restrictions: Use oxygen at 2 liters while ambulating Discharge Orders/Prescriptions Prescriptions: New dexamethasone 2 mg tablet 6 mg PO DAILY Qty: 18 RF: 0 Continued lisinopril 20 mg tablet 20 mg PO DAILY RF: 0 levothyroxine 25 mcg tablet 25 mcg PO DAILY RF: 0 metformin 500 mg Tablet 500 mg PO BID RF: 0 cholecalciferol (vitamin D3) 50 mcg (2,000 unit) Capsule 100 mcg PO DAILY RF: 0 Referrals / Follow Up: Willie Ng MD [STAFF PHYSICIAN] - See Referral Note (in two weeks) [facility],[place] [Primary Care Provider] - Disposition Disposition (needs filled in before D/C Order can be placed): Home, Self Care Charges/Coding Visit Charges Inpatient E&M: 45760 Disch Hosp
--- NOTE | 2021-02-22 12:11 | CASEMGMT ---
Pt qualifies for home O2 with exertion. Referral faxed to [facility], spoke with Rema who is aware of referral. Pt provided with portable O2 tank from [facility].
--- NOTE | 2021-05-25 15:41 | CASEMGMT ---
Refaxed CMN to [facility].
== END 2021-02-22 14:55 | disposition home or self-care (01) | DRG 177 ==
LOC: ED 18:38 → MS3 18:54
PROVIDERS: Family Medicine; Admitting Provider Internal Medicine; Emergency Provider Emergency Medicine; Visit Provider Internal Medicine
DX: U07.1 COVID-19 (principal); J12.82 Pneumonia due to coronavirus disease 2019; J96.01 Acute respiratory failure with hypoxia; E43 Unspecified severe protein-calorie malnutrition; Z28.3 Underimmunization status; I12.9 Hypertensive chronic kidney disease with stage 1 through stage 4 chronic kidney disease, or unspecified chronic kidney disease; E11.22 Type 2 diabetes mellitus with diabetic chronic kidney disease; N18.31 Chronic kidney disease, stage 3a; E86.0 Dehydration; E03.9 Hypothyroidism, unspecified; R19.7 Diarrhea, unspecified; Z68.24 Body mass index [BMI] 24.0-24.9, adult; Z79.84 Long term (current) use of oral hypoglycemic drugs; Z79.890 Hormone replacement therapy; Z79.899 Other long term (current) drug therapy; Z87.891 Personal history of nicotine dependence
CPT/HCPCS: 36415; 71045; 80053; 82550; 82962; 83605; 83615; 83735; 83880; 84100; 84145; 84443; 84484; 85025; 85379; 85384; 85610; 86140; 87070; 87106; 87107; 87205; 87426; 87449; 93005; 94667; 94668; 94762; 99251; 99285; J7120; A4216; G0463

== ENCOUNTER → 2021-03-22 12:21 | Outpatient (CLI) | payer MEDICARE, OTHER, SELFPAY ==
[2021-03-22 14:08] LABS: Absolute Lymphocyte Count 2.82 X10^3/uL (0.83-4.51); Absolute Neutrophil Count 8.1 X10^3/uL (2.0-7.7); Basophil# 0.08 X10^3/uL; Basophil% 0.6 % (0-1); Eosinophil# 0.22 X10^3/uL; Eosinophils% 1.7 % (0-5); Hematocrit 45.2 % (40-54); Hemoglobin 14.5 g/dL (13.0-16.5); Lymphocyte # 2.82 X10^3/ul (0.83-4.51); Mean Corp Hgb Conc 32.1 g/dL (32-36); Mean Corpuscular Hgb 29.3 pg (27.0-32.0); Mean Corpuscular Volume 91.3 fL (80-94); Mean Platelet Vol. 10.4 fl (6.2-12.0); Monocyte# 1.37 X10^3/uL; Monocyte% 10.7 % (0-10); NRBC Flagged by Analyzer 0 % (0-5); Neutrophil # 8.09 X10^3/uL (2.7-7.7); Neutrophil % 63.1 % (47-70); Platelet Count 379 K/mm3 (150-450); RBC Distribution Width CV 13.2 % (11.6-14.6); RBC Distribution Width SD 43.8 fl (35.1-43.9); Red Blood Count 4.95 M/mm3 (4.6-6.2); White Blood Count 12.8 K/mm3 (4.4-11.0)
[2021-03-22 14:26] LABS: Vitamin D,25 Hydroxy 67.1 ng/mL
[2021-03-22 14:34] LABS: ALB/GLOB Ratio 0.8 RATIO (0.9-2.4); AST(SGOT) 15 U/L (15-37); Alanine Aminotransfer ALT/SGPT 26 U/L (16-61); Albumin, Serum 3.3 g/dL (3.2-5.0); Alkaline Phosphatase 93 U/L (45-117); Anion Gap 7 (5-15); BUN 23 mg/dL (7-18); BUN/Creat Ratio 14.5 RATIO (10-20); Calcium,Total 9.3 mg/dL (8.5-10.1); Chloride 107 mmol/L (98-107); Cholesterol 181 mg/dL (200); Creatinine, Serum 1.59 mg/dL (0.70-1.30); EST Glomerular Filtration Rate 46 mL/min (>60); Est Glom Filt Rate - Afr Amer 55 mL/min (>60); Globulin 4.2 g/dL (2.2-4.2); Glucose 172 mg/dL (74-106); High Density Lipoprotein 36 mg/dL; Potassium 3.9 mmol/L (3.5-5.1); Protein, Total 7.5 g/dL (6.4-8.2); Sodium Level 139 mmol/L (136-145); T4 Free Direct 1.15 ng/dL (0.76-1.46); Thyroid Stim Hormone (TSH) 2.39 uIU/mL (0.358-3.74); Triglycerides 354 mg/dL; Very Low Density Lipoprotein 71 mg/dL (5-40)
[2021-03-22 14:38] LABS: Microalbumin,Random Urine 34.1 mg/L (NO RANGE EST.); Microalbumin:Creatinine Ratio 11.2 mg/g CRE (<30 mg/g CRE)
[2021-03-27 13:19] LABS: Anti-Thyroglobulin AB < 1.0 IU/mL (0.0-0.9); Thyroglobulin, Serum Qt. 5.6 ng/mL (1.4-29.2); Thyroid Peroxidase AB < 8 IU/mL (0-34)
== END ==
PROVIDERS: PCP Family Medicine; Referring Provider Family Medicine; Visit Provider Family Medicine
DX: E11.9 Type 2 diabetes mellitus without complications (principal); E03.9 Hypothyroidism, unspecified; E55.9 Vitamin D deficiency, unspecified
CPT/HCPCS: 80053; 80061; 82043; 82306; 82570; 83036; 84432; 84439; 84443; 85025; 86376; 86800

== ENCOUNTER 2021-06-02 16:40 | Emergency (ER) | payer OTHER, SELFPAY ==
[2021-06-02 16:41] VITALS: BP 162/92; PULSE 86; RESP 15; TEMP 35.9; O2SAT 97; BMI 25.8
--- NOTE | 2021-06-02 17:03 | EKG12_ITS ---
Test Reason : PALPS Blood Pressure : / mmHG Vent. Rate : 080 BPM Atrial Rate : 080 BPM P-R Int : 160 ms QRS Dur : 076 ms QT Int : 346 ms P-R-T Axes : 038 -14 001 degrees QTc Int : 399 ms Normal sinus rhythm Nonspecific ST abnormality Abnormal ECG Confirmed by MOHAN GOMEZ, KIZZY ([id number]), supervising editor trailer SHIRLEY OROPEZA ([id number]) on 06/05/2021 10:48:24 AM Referred By: BRUCE Confirmed By:KIZZY PRESTON MD
--- NOTE | 2021-06-02 17:11 | EDS_ITS ---
HPI History of Present Illness Chief Complaint: Palpitations Informant: patient Onset/Context/Timing Onset: Days Timing: Intermittent Quality: Negative for Heaviness, Indigestion and Pain Worsened By: Nothing Relieved By: Nothing Associated Symptoms: Negative for Nausea, Vomiting, Diaphoresis, Dyspnea, Cough, Fever, Lightheadedness, Acid Reflux and Palpitations Narrative Narrative: 71-year-old male history of diabetes, hypertension and hypothyr oidism. COVID in February. Been using his pulse ox at home recently his oxygen saturations have been fine but his heart rate sometimes will drop down into the 40s and even mid 30s. However he has no symptoms with that. He denies any lightheadedness or dizziness. No syncope. No passing out. No chest pain or shortness of breath. States he feels fine. Prior Similar Symptoms: No Recent Illness/Hospitalization: No CVD Risk Factors: Positive for Hypertension and Diabetes PE Risk Factors: Negative for Recent Travel/Surgery, Recent Immobilization, Prior DVT or PE, Cancer and OCP + Smoking + >/=35 TAD Risk Factors: Negative for Marfan's Syndrome [facility] Medical History Acute hypoxemic respiratory failure due to COVID-19 COVID-19 Diabetes Ex-smoker Hypertension Hypothyroidism Home Medications cholecalciferol (vitamin D3) 100 mcg PO DAILY 02/19/21 [History Last Taken 02/19/21] levothyroxine 25 mcg PO DAILY 02/19/21 [History Last Taken 02/18/21] lisinopril 20 mg PO DAILY 02/19/21 [History Last Taken 02/19/21] metformin 500 mg PO BID 02/19/21 [History Last Taken 02/18/21] dexamethasone 6 mg PO DAILY #18 tab 02/22/21 [Rx Last Taken Unknown] Allergy/AdvReac Type Severity Reaction Status Date / Time No Known Allergies Allergy Verified 06/02/21 16:43 Social History Smoking Status: Former smoker substance use type: does not use ROS ROS ED ROS Narrative Denies any chest pain, shortness of breath or lightheadedness. Review of Systems ROS Unobtainable: Denies due to encephalopathy Constitutional Constitutional ED: Denies fever(s) Eyes Eyes: Reports none ENT ENT ED: Denies ear pain Cardiovascular Cardiovascular: Reports as per HPI and palpitations; Denies chest pain Respiratory/Chest Respiratory/Chest: Denies dyspnea Gastrointestinal Gastrointestinal: Denies abdominal pain, diarrhea, nausea or vomiting Genitourinary Genitourinary ED: Denies dysuria Musculoskeletal Musculoskeletal: Denies myalgias Integumentary Denies rash Neurologic Neurologic: Denies headache(s) Psychiatric Psychiatric: Denies depression Endocrine Endocrinology: Denies polyuria Hematologic/Lymphatic Hematologic/Lymphatic: Denies easy bruising Allergic/Immunologic Allergic/Immunologic ED: Denies urticaria EXAM Physical Exam Narrative Exam Narrative: 71-year-old male no acute distress. Vital signs stable afebrile heart rate in the 80s. Pulse ox 97% on room air no signs hypoxia. H EENT exam normal. Neck nontender no lymphadenopathy. No thyromegaly. Lungs clear to auscultation bilaterally. Heart regular rhythm no murmur. Rate about 85. Abdomen soft nontender. Moving all 4 extremities. Strong radial pulse. Calves are nontender without edema. Neurologic exam normal. Const Vital Signs: 06/02/21 16:41 06/02/21 17:43 Temperature 96.6 F L Temperature Source Temporal Pulse Rate 86 Respiratory Rate 15 Blood Pressure 162/92 H Blood Pressure Mean 115 Pulse Ox 97 98 Oxygen Delivery Method Room Air Room Air Positive well nourished and well developed; Negative for obese, cachectic, contractures or unkempt General Appearance ED: well developed and NAD; Negative for unkempt, cachectic, contractures or pallor Nutritional Appearance: Negative for cachectic or obese HEENT Reports moist mucous membranes normocephalic and atraumatic; Negative for trauma or tenderness Eyes PERRL and EOMs intact bilaterally General Eye ED: Negative for pale conjunctiva or scleral icterus Neck no lymphadenopathy, supple and no JVD General: Negative for tenderness Chest Wall inspection of chest normal and palpation of chest normal Chest: Negative for tenderness or other Resp normal respiratory effort and clear to auscultation bilaterally Effort and Inspection: respiratory distress Auscultation: Negative for rales, rhonchi or wheezes Cardio regular rate, regular rhythm, S1 normal heart sound, S2 normal heart sound and no murmurs Rate: Negative for bradycardia or tachycardic GI normal to inspection, nondistended, normoactive bowel sounds, soft to palpation, non-tender, non-distended and no masses; Negative for hepatosplenomegaly Auscultation: hyperactive bowel sounds Palpation: Negative for splenomegaly Back/Spine no CVA tenderness General Back: Negative for CVA tenderness Extremity normal to inspection General Extremety ED: Negative for edema or tenderness General Extremity: Negative for edema Neuro oriented x3 Sensorium / Orientation: awake, alert, oriented to person, oriented to place and oriented to time Motor Exam: strength 5/5 throughout Psych mental status grossly normal Appearance: Negative for unkempt Mood & Affect: Negative for depressed or tearful Skin no rashes or lesions noted and no wounds General Skin Exam: Negative for jaundice or pallor MDM MDM MDM Narrative Medical decision making narrative: 71-year-old male with at times transaminase only blood pressure without any symptoms. Great cardiac history. Undergo cardiac work-up. Currently his exam is normal and his heart rate is 85. Repeat exam patient is doing well at 7:05 PM. Work-up is negative he will be discharged [facility] Lab Data Attestation: I reviewed the patient's lab results. Lab results narrative: CBC shows a white count of 12. H&H of 14 and 43. Normal platelets. Electrolytes show a sodium 139 gap of 6 BUN of 15 creatinine 1.41. Normal troponin is 8 and glucose of 176. Labs: Laboratory Results - last 24 hr 06/02/21 06/02/21 17:35 17:35 WBC 12.1 H RBC 4.80 Hgb 14.2 Hct 43.3 MCV 90.2 MCH 29.6 MCHC 32.8 RDW Std Deviation 44.4 H RDW Coeff of Dede 13.4 Plt Count 254 MPV 9.9 Immature Gran % (Auto) 0.500 Neut % (Auto) 73.4 H Lymph % (Auto) 18.1 L Rusk % (Auto) 6.4 Eos % (Auto) 1.2 Baso % (Auto) 0.4 Absolute Neuts (auto) 8.9 H Absolute Lymphs (auto) 2.18 Nucleated RBC % 0 Sodium 139 Potassium 3.9 Chloride 108 H Carbon Dioxide 25.0 Anion Gap 6 BUN 15 Creatinine 1.41 H Estim Creat Clear Calc 45.82 Est GFR (MDRD) Af Amer 64 Est GFR (MDRD) Non-Af 53 L BUN/Creatinine Ratio 10.6 Glucose 176 H Calcium 9.4 Troponin I High Sens 8 Radiography Chest X-Ray - ED: 1 View, Read by ED Physician, Heart, Lungs, Mediastinum, Bony Structures, No Acute Disease and Chronic Changes Diagnostic Testing: Clinical Impression(s) from Imaging Studies Chest X-Ray 06/02/21 17:17 IMPRESSION: No airspace consolidation or pleural effusion. Electronically Signed: Percy Ma MD ([place]) at 17:40 EST , Chest x-ray, portable, single view interpreted myself and radiologist shows no acute abnormality. Normal cardiac silhouette. Rhythm Strip Rhythm Strip: Sinus Rhythm Rate: 80 Ectopy: None EKG Initial EKG: Attestation: I personally reviewed and interpreted this EKG as follows: Interpretation: Sinus Rhythm and No Acute Injury Pattern Comments: Normal sinus rhythm rate 80 no acute signs of WI nor ischemia. Discharge Plan Triage Chief Complaint: Palpitations ED Provider: Joe Marcelo Dx/Rx/DC Orders Clinical Impression: Bradycardia, Heart palpitations, History of diabetes mellitus Instructions: ED Bradycardia Prescriptions: No Action lisinopril 20 mg tablet 20 mg PO DAILY RF: 0 levothyroxine 25 mcg tablet 25 mcg PO DAILY RF: 0 metformin 500 mg Tablet 500 mg PO BID RF: 0 cholecalciferol (vitamin D3) 50 mcg (2,000 unit) Capsule 100 mcg PO DAILY RF: 0 dexamethasone 2 mg tablet 6 mg PO DAILY Qty: 18 RF: 0 Primary Care Provider: Willie Norton Referrals: Willie Norton MD [Primary Care Provider] - As soon as possible Activity Restrictions/Additional Instructions: Follow-up with your doctor to get outpatient cardiac monitoring. They can do either Holter or a event monitor. Your labs, chest x-ray and EKG today were unremarkable. Disposition Disposition: Home, Self Care
--- NOTE | 2021-06-02 17:17 | RAD_ITS ---
STUDY: X-RAY CHEST REASON FOR EXAM: Male, 71 years old. chest pain TECHNIQUE: AP COMPARISON: None. FINDINGS: The lungs are clear and expanded. There is no demonstrated pleural abnormality. Normal size heart. Normal mediastinum and bhavesh. Normal visualized pulmonary arteries. There is atherosclerotic tortuosity of the aortic arch and descending thoracic aorta. Normal visualized thoracic spine. Normal visualized ribs, clavicles, and shoulders. There is no demonstrated abnormality of the visualized soft tissue structures of the upper abdomen. RAD/Chest 1 View (Portable) IMPRESSION: No airspace consolidation or pleural effusion. Electronically Signed: Percy Ma MD ([place]) at 17:40 EST ,
[2021-06-02 17:43] VITALS: O2SAT 98
[2021-06-02 17:58] LABS: Absolute Lymphocyte Count 2.18 X10^3/uL (0.83-4.51); Absolute Neutrophil Count 8.9 X10^3/uL (2.0-7.7); Basophil# 0.05 X10^3/uL; Basophil% 0.4 % (0-1); Eosinophil# 0.14 X10^3/uL; Eosinophils% 1.2 % (0-5); Hematocrit 43.3 % (40-54); Hemoglobin 14.2 g/dL (13.0-16.5); Lymphocyte # 2.18 X10^3/ul (0.83-4.51); Lymphocyte % 18.1 % (19-41); Mean Corp Hgb Conc 32.8 g/dL (32-36); Mean Corpuscular Hgb 29.6 pg (27.0-32.0); Mean Corpuscular Volume 90.2 fL (80-94); Mean Platelet Vol. 9.9 fl (6.2-12.0); Monocyte# 0.77 X10^3/uL; Monocyte% 6.4 % (0-10); NRBC Flagged by Analyzer 0 % (0-5); Neutrophil # 8.87 X10^3/uL (2.7-7.7); Neutrophil % 73.4 % (47-70); Platelet Count 254 K/mm3 (150-450); RBC Distribution Width CV 13.4 % (11.6-14.6); RBC Distribution Width SD 44.4 fl (35.1-43.9); White Blood Count 12.1 K/mm3 (4.4-11.0)
[2021-06-02 18:12] LABS: Anion Gap 6 (5-15); BUN 15 mg/dL (7-18); BUN/Creat Ratio 10.6 RATIO (10-20); Calcium,Total 9.4 mg/dL (8.5-10.1); Chloride 108 mmol/L (98-107); Creatinine, Serum 1.41 mg/dL (0.70-1.30); EST Glomerular Filtration Rate 53 mL/min (>60); Est Glom Filt Rate - Afr Amer 64 mL/min (>60); Estimated Creatinine Clearance 45.82 ml/min; Glucose 176 mg/dL (74-106); Potassium 3.9 mmol/L (3.5-5.1); Sodium Level 139 mmol/L (136-145); Troponin-I HS 8 pg/mL (3.0-78.0)
[2021-06-02 19:32] VITALS: BP 124/74
[2021-06-02 19:33] VITALS: BP 124/74
[2021-06-02 19:56] LABS: Troponin-I HS 11 pg/mL (3.0-78.0)
== END 2021-06-02 19:33 | disposition home or self-care (01) ==
PROVIDERS: Emergency Provider Emergency Medicine; PCP Family Medicine; Visit Provider Emergency Medicine
DX: R00.1 Bradycardia, unspecified (principal); E11.9 Type 2 diabetes mellitus without complications; R00.2 Palpitations; I10 Essential (primary) hypertension; E03.9 Hypothyroidism, unspecified; K21.9 Gastro-esophageal reflux disease without esophagitis; Z79.84 Long term (current) use of oral hypoglycemic drugs; Z79.890 Hormone replacement therapy; Z87.891 Personal history of nicotine dependence; Z86.16 Personal history of COVID-19
CPT/HCPCS: 71045; 80048; 84484; 85025; 93005; 99284; A4216

== ENCOUNTER 2021-06-13 10:17 | Observation (INO) | payer MEDICARE, OTHER, SELFPAY ==
[2021-06-13] VITALS (16 sets, daily range): BP systolic 128–172; BP diastolic 74–106; PULSE 58–77; RESP 16–18; TEMP 36.1–36.9; O2SAT 95–98; BMI 26.2; BMI 26.6; BMI 25.9
--- NOTE | 2021-06-13 10:34 | CT_ITS ---
STUDY: CT HEAD STROKE PROTOCOL W/O CONTRAST INJECTION REASON FOR EXAM: Male, 71 years old. Neuro deficit, acute, stroke suspected RADIATION DOSAGE (If Supplied By Facility): CTDIvol = ( 44.99 ) mGy, DLP = ( 812.98 ) mGycm TECHNIQUE: Transaxial CT imaging of the brain was performed without administration of intravenous contrast material. Individualized dose optimization techniques were used for this CT. COMPARISON: No relevant priors. FINDINGS: Normal soft tissue structures. Normal calvarium. There is mild cerebral atrophy with widening of the extra-axial spaces and ventricular dilatation. Normal white matter tracts of the cerebral hemispheres. Normal basal ganglia and thalami. Normal brainstem. Normal cerebellum. There is no intracranial hemorrhage. There are no findings of an acute ischemic infarction. Partial opacification of the maxillary sinuses bilaterally. CT/STROKE Brain/Head without Cont IMPRESSION: Chronic involutional changes of the brain. N.B. : The above Results were Read Back by Bruno Soriano MD to PATRICK CASTORENA and understanding confirmed on 06/13/2021 11:03:28 (ET). Electronically Signed: Bruon Soriano MD at 11:04 EST ,
--- NOTE | 2021-06-13 10:34 | EKG12_ITS ---
Test Reason : STROKE CLEARANCE Blood Pressure : / mmHG Vent. Rate : 061 BPM Atrial Rate : 061 BPM P-R Int : 180 ms QRS Dur : 080 ms QT Int : 408 ms P-R-T Axes : 007 -10 016 degrees QTc Int : 410 ms Normal sinus rhythm Normal ECG Confirmed by MOHAN GOMEZ, KIZZY ([id number]), makeup editor SHIRLEY OROPEZA ([id number]) on 06/14/2021 10:12:31 AM Referred By: PL Confirmed By:KIZZY PRESTON MD
--- NOTE | 2021-06-13 10:35 | CT_ITS ---
STUDY: CTA HEAD AND NECK WITH CONTRAST REASON FOR EXAM: Male, 71 years old. Neuro deficit, acute, stroke suspected RADIATION DOSAGE (If Supplied By Facility): CTDIvol = ( 23.60 ) mGy, DLP = ( 728.52 ) mGycm TECHNIQUE: CT angiography was performed with a multi-detector CT scanner. Data acquisition was obtained from the skull base through the vertex following intravenous administration of IV 100mL Isovue-370. MIP images were reconstructed from the axial data set. Post-processing of the angiographic images was performed, with multiplanar reformation and 3D reconstruction. Individualized dose optimization techniques were used for this CT. COMPARISON: No relevant priors. FINDINGS: Normal bilateral petrous carotid arteries. Normal right cavernous carotid artery with a normal supraclinoid bifurcation. Normal left cavernous carotid artery with a normal supraclinoid bifurcation. Normal right A1 segments of the anterior cerebral artery. Normal left A1 segments of the anterior cerebral artery. Normal intact anterior communicating artery (ACOM). Normal bilateral A2 segments of the anterior cerebral arteries. Normal right M1 and M2 segments of the middle cerebral arteries, with a normal M1 bifurcation. Normal left M1 and M2 segments of the middle cerebral arteries, with a normal M1 bifurcation. Normal right posterior communicating artery (PCOM). Normal left posterior communicating artery (PCOM). Normal bilateral vertebral arteries. Normal basilar artery with a normal basilar bifurcation. The visualized bilateral superior cerebellar (SCA) arteries are normal. Normal bilateral P1, P2 and visualized P3 segments of the posterior cerebral arteries. There is no demonstrated aneurysm of the [place]. AORTIC ARCH: Normal visualized aortic arch. Normal origins of the brachiocephalic, left common carotid, and left subclavian arteries. RIGHT CAROTID ARTERIES: Normal right common carotid artery (CCA). Normal right common carotid bulb. Normal origin of the right internal carotid (ICA) artery without a hemodynamically significant stenosis. Normal visualized cervical portion of the right internal carotid artery. Normal origin of the right external carotid artery (ECA). LEFT CAROTID ARTERIES: Normal left common carotid artery (CCA). Normal left common carotid bulb. Normal origin of the left internal carotid (ICA) artery without a hemodynamically significant stenosis. Normal visualized cervical portion of the left internal carotid artery. Normal origin of the left external carotid artery (ECA). VERTEBRAL ARTERIES: Normal bilateral vertebral arteries. CT/STROKE CTA Head AND Neck W/Con IMPRESSION: Normal CTA Head and neck with contrast. N.B. : The above Results were Read Back by Bruno Soriano MD to PATRICK CASTORENA and understanding confirmed on 06/13/2021 11:40:54 (ET). Electronically Signed: Bruno Soriano MD at 11:42 EST ,
--- NOTE | 2021-06-13 10:38 | TELEMED_ITS ---
[facility] Tele[facility] has confirmed receipt of a request for visit. This document confirms receipt of the order initiating the consult. To find the results of the consultation, please view the patient's reports for the scanned Telemed Consult.
--- NOTE | 2021-06-13 10:39 | EDS_ITS ---
HPI History of Present Illness Chief Complaint: Neuro S/Sx Informant: patient and spouse/S.O. Narrative Narrative: Patient presents with an episode this morning about an hour ago. He had a sense of dizziness and off balance. Also, if he turned his head to the right he got double vision which was a horizontal separation of images. The double vision was only present turning to the right. The dizziness or lightheaded feeling or sense of motion was continuous. Both of the symptoms are now gone. They lasted for maybe 30 minutes. He denies noticing any numbness tingling or weakness. No speech problems. No vision deficit other than the double vision as above. He feels back to normal. Patient does have a history of blood pressure and was just started on meds for cholesterol. He was seen here recently with intermittent bradycardia. He did follow-up and has a cardiac cath lab technologist currently on. He is not having any chest or heart rate symptoms. Patient's younger brother did have a very massive stroke younger than his current age. But he states his younger brother also lives a very unhealthy lifestyle. The patient's father had a stroke that sounds like it may have been due to a bleeding aneurysm. This patient states he never gets headaches and do es not have 1 today. Other than turning to the right nothing specifically made symptoms better or worse. The lightheadedness was not altered by his position that he recalls. [facility] Medical History Acute hypoxemic respiratory failure due to COVID-19 COVID-19 Diabetes Ex-smoker Hypertension Hypothyroidism Home Medications cholecalciferol (vitamin D3) 100 mcg PO DAILY 02/19/21 [History Last Taken 02/19/21] lisinopril 30 mg PO DAILY 02/19/21 [History Last Taken 02/19/21] metformin 500 mg PO BID 02/19/21 [History Last Taken 02/18/21] atorvastatin 40 mg PO DAILY 06/13/21 [History Last Taken Unknown] Allergy/AdvReac Type Severity Reaction Status Date / Time No Known Allergies Allergy Verified 06/13/21 10:18 Social History Smoking Status: Former smoker substance use type: does not use ROS ROS ED Constitutional Constitutional ED: Denies chills or fever(s) Eyes Eyes: Reports diplopia; Denies blurry vision ENT ENT ED: Denies rhinorrhea Cardiovascular Cardiovascular: Denies chest pain or palpitations Respiratory/Chest Respiratory/Chest: Denies cough or dyspnea Gastrointestinal Gastrointestinal: Denies abdominal pain, nausea or vomiting Musculoskeletal Musculoskeletal: Denies back pain, myalgias or neck pain Integumentary Denies rash Neurologic Neurologic: Reports other Details: See history of present illness ; Denies headache(s), paresthesias or weakness Psychiatric Psychiatric: Denies anxiety or depression Endocrine Endocrinology: Denies polydipsia or polyuria Allergic/Immunologic Allergic/Immunologic ED: Denies urticaria EXAM Physical Exam Const Vital Signs: 06/13/21 10:19 06/13/21 10:30 06/13/21 10:38 Temperature 96.9 F L Temperature Source Temporal Pulse Rate 58 L 68 Respiratory Rate 17 17 Blood Pressure 161/88 H 172/106 H Blood Pressure Mean 112 128 Pulse Ox 97 97 98 Oxygen Delivery Method Room Air Room Air Room Air 06/13/21 11:18 06/13/21 12:00 06/13/21 13:00 Temperature Temperature Source Pulse Rate 61 61 66 Respiratory Rate 17 17 18 Blood Pressure 134/93 H 128/78 H 156/74 H Blood Pressure Mean 106 94 101 Pulse Ox 96 96 97 Oxygen Delivery Method Room Air Room Air Positive well nourished and well developed General Appearance ED: well developed and NAD; Negative for cyanotic or diaphoretic HEENT Reports moist mucous membranes; Denies dry mucous membranes HEENT Narrative: No facial droop. Mouth ED: No dry mucous membranes Mouth: No dry mucous membranes Eyes EOMs intact bilaterally Eyes Narrative: No visual field deficit Neck no lymphadenopathy and no JVD Neck Narrative: No carotid bruit heard. Chest Wall inspection of chest normal Resp normal respiratory effort and clear to auscultation bilaterally Effort and Inspection: Negative for pain with movement Auscultation: Negative for rales, rhonchi or wheezes Cardio regular rate and regular rhythm Rate: other Other Details: Currently the patient's heart rate is about 70. Occasionally he will have a supraventricular bigeminy with rates in the 30s. GI normal to inspection, nondistended, normoactive bowel sounds and non-tender Palpation: soft Back/Spine no CVA tenderness Extremity normal to inspection General Extremety ED: Negative for edema or tenderness General Extremity: Negative for edema Neuro oriented x3, CN's II-XII intact bilaterally and no sensory deficits noted Neuro Narrative: Patient has an NIH of 0. He also has a very normal gait and balance. I watched him walk all the way down the lujan into the room. I watched him get harshly undressed into the bed without any difficulties whatsoever. However, his symptoms are also resolved when I witnessed this. Sensorium / Orientation: alert; Negative for orientation impaired, lethargic or stuporous Sensory Exam: No sensory level loss detected Motor Exam: strength 5/5 throughout; Negative for general weakness or strength abnormal Psych mental status grossly normal Skin no rashes or lesions noted MDM MDM MDM Narrative Medical decision making narrative: Patient CBC is normal. Coags are normal. Electrolytes show minimal elevation of chloride and creatinine. Glucose is reasonably controlled at 141. CT of his head and CTA of head and neck are not showing any acute process changes. There are chronic changes. Symptoms have remained resolved. We had teleneurology evaluate him. Their concern was similar to mine. Although this could be vertiginous, he did have diplopia which goes against that. This may also be brainstem TIA. He does have multiple risk factors. I discussed case with hospitalist. Lab Data Attestation: I reviewed the patient's lab results. Labs: Laboratory Results - last 24 hr 06/13/21 06/13/21 06/13/21 10:30 10:30 10:30 WBC 10.8 RBC 5.12 Hgb 15.3 Hct 47.0 MCV 91.8 MCH 29.9 MCHC 32.6 RDW Std Deviation 44.2 H RDW Coeff of Dede 13.1 Plt Count 251 MPV 9.8 Immature Gran % (Auto) 0.300 Neut % (Auto) 57.9 Lymph % (Auto) 28.2 [place] % (Auto) 10.1 H Eos % (Auto) 3.1 Baso % (Auto) 0.4 Absolute Neuts (auto) 6.3 Absolute Lymphs (auto) 3.05 Nucleated RBC % 0 PT 13.8 INR 1.1 APTT 30.6 Sodium 140 Potassium 4.1 Chloride 108 H Carbon Dioxide 25.0 Anion Gap 7 BUN 12 Creatinine 1.46 H Estim Creat Clear Calc 44.25 Est GFR (MDRD) Af Amer 61 Est GFR (MDRD) Non-Af 50 L BUN/Creatinine Ratio 8.2 L Glucose 141 H Calcium 9.5 Troponin I High Sens 10 POC Glucose 06/13/21 10:35 WBC RBC Hgb Hct MCV MCH MCHC RDW Std Deviation RDW Coeff of Dede Plt Count MPV Immature Gran % (Auto) Neut % (Auto) Lymph % (Auto) [place] % (Auto) Eos % (Auto) Baso % (Auto) Absolute Neuts (auto) Absolute Lymphs (auto) Nucleated RBC % PT INR APTT Sodium Potassium Chloride Carbon Dioxide Anion Gap BUN Creatinine Estim Creat Clear Calc Est GFR (MDRD) Af Amer Est GFR (MDRD) Non-Af BUN/Creatinine Ratio Glucose Calcium Troponin I High Sens POC Glucose 137 H Radiography Diagnostic Testing: Clinical Impression(s) from Imaging Studies Brain CT 06/13/21 10:34 IMPRESSION: Chronic involutional changes of the brain. N.B. : The above Results were Read Back by Bruno Soriano MD to PATRICK FERNANDEZ and understanding confirmed on 06/13/2021 11:03:28 (ET). Electronically Signed: Bruno Soriano MD at 11:04 EST , ADDENDUM: 06/13/21 1111 IMPRESSION: Chronic involutional changes of the brain. N.B. : The above Results were Read Back by Bruno Soriano MD to PATRICK FERNANDEZ and understanding confirmed on 06/13/2021 11:03:28 (ET). Electronically Signed: Bruno Soriano MD at 11:04 EST , Head/Neck CTA 06/13/21 10:35 IMPRESSION: Normal CTA Head and neck with contrast. N.B. : The above Results were Read Back by Bruno Soriano MD to PATRICK FERNANDEZ and understanding confirmed on 06/13/2021 11:40:54 (ET). Electronically Signed: Bruno Soriano MD at 11:42 EST , ADDENDUM: 06/13/21 1149 IMPRESSION: Normal CTA Head and neck with contrast. N.B. : The above Results were Read Back by Bruno Soriano MD to PATRICK FERNANDEZ and understanding confirmed on 06/13/2021 11:40:54 (ET). Electronically Signed: Bruno Soriano MD at 11:42 EST , Chest X-Ray 06/13/21 10:58 IMPRESSION: Normal x-ray examination of the chest. Electronically Signed: Bruno Soriano MD at 11:09 EST , EKG Initial EKG: Comments: EKG done Discharge Plan Triage Chief Complaint: Neuro S/Sx ED Provider: Patrick Fernandez Dx/Rx/DC Orders Clinical Impression: TIA (transient ischemic attack), Diplopia Prescriptions: No Action lisinopril 20 mg tablet 30 mg PO DAILY RF: 0 metformin 500 mg Tablet 500 mg PO BID RF: 0 cholecalciferol (vitamin D3) 50 mcg (2,000 unit) Capsule 100 mcg PO DAILY RF: 0 atorvastatin 40 mg tablet 40 mg PO DAILY RF: 0 Primary Care Provider: Willie Norton Referrals: Willie Norton MD [Primary Care Provider] - Disposition Disposition: Acute Care Hospital [facility]
[2021-06-13 10:41] LABS: Bedside Glucose 137 mg/dL (74-106)
[2021-06-13 10:42] LABS: Absolute Lymphocyte Count 3.05 X10^3/uL (0.83-4.51); Absolute Neutrophil Count 6.3 X10^3/uL (2.0-7.7); Basophil# 0.04 X10^3/uL; Basophil% 0.4 % (0-1); Eosinophil# 0.34 X10^3/uL; Eosinophils% 3.1 % (0-5); Hemoglobin 15.3 g/dL (13.0-16.5); Lymphocyte # 3.05 X10^3/ul (0.83-4.51); Lymphocyte % 28.2 % (19-41); Mean Corp Hgb Conc 32.6 g/dL (32-36); Mean Corpuscular Hgb 29.9 pg (27.0-32.0); Mean Corpuscular Volume 91.8 fL (80-94); Mean Platelet Vol. 9.8 fl (6.2-12.0); Monocyte# 1.09 X10^3/uL; Monocyte% 10.1 % (0-10); NRBC Flagged by Analyzer 0 % (0-5); Neutrophil # 6.27 X10^3/uL (2.7-7.7); Neutrophil % 57.9 % (47-70); Platelet Count 251 K/mm3 (150-450); RBC Distribution Width CV 13.1 % (11.6-14.6); RBC Distribution Width SD 44.2 fl (35.1-43.9); Red Blood Count 5.12 M/mm3 (4.6-6.2); White Blood Count 10.8 K/mm3 (4.4-11.0)
[2021-06-13 10:54] LABS: International Normalized Ratio 1.1; Partial Thromboplast Time 30.6 Seconds (24.1-36.2); Prothrombin Time (Protime)PT. 13.8 SECONDS (11.7-14.9)
--- NOTE | 2021-06-13 10:58 | RAD_ITS ---
STUDY: X-RAY CHEST REASON FOR EXAM: Male, 71 years old. Neuro deficit, acute, stroke suspected TECHNIQUE: Single AP portable view of the chest. COMPARISON: Comparison is made with prior study dated 06/02/2021. FINDINGS: EKG electrodes are seen. The lungs are clear and expanded. There is no demonstrated pleural abnormality. Normal size heart. Normal mediastinum and bhavesh. Normal visualized pulmonary arteries. There is atherosclerotic tortuosity of the aortic arch and descending thoracic aorta. There are diffuse degenerative changes of the visualized thoracic spine. Normal visualized ribs, clavicles, and shoulders. There is no demonstrated abnormality of the visualized soft tissue structures of the upper abdomen. RAD/Chest 1 View IMPRESSION: Normal x-ray examination of the chest. Electronically Signed: Bruno Soriano MD at 11:09 [facility] ,
[2021-06-13 11:01] LABS: Anion Gap 7 (5-15); BUN 12 mg/dL (7-18); BUN/Creat Ratio 8.2 RATIO (10-20); Calcium,Total 9.5 mg/dL (8.5-10.1); Chloride 108 mmol/L (98-107); Creatinine, Serum 1.46 mg/dL (0.70-1.30); EST Glomerular Filtration Rate 50 mL/min (>60); Est Glom Filt Rate - Afr Amer 61 mL/min (>60); Estimated Creatinine Clearance 44.25 ml/min; Glucose 141 mg/dL (74-106); Potassium 4.1 mmol/L (3.5-5.1); Sodium Level 140 mmol/L (136-145); Troponin-I HS 10 pg/mL (3.0-78.0)
--- NOTE | 2021-06-13 13:08 | HP.PCM.HOS_ITS ---
HPI - General General Date of Admission: 06/13/21 HPI Narrative EVANS SANDERSON, is a 71 M with a PMh as outlined who presents via the ED on 06/13/2021 with a complaint of dizziness and unsteady gait. He also had some double vision with turning his head to the right. His last known well was ~ 8:30am on the day of admission. Symptoms had resolved by the time he came in to the ED. His father of stroke from aneurysm and his younger brother also had a massive stroke at a relatively younger age, but says his younger brother led a very unhealthy lifestyle. He denied any lightheadedness, nausea, vomiting, any numbness or tingling or any focal weakness. Review of systems is otherwise negative. He has never had such symptoms before. 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 He thinks his bradycardia developed after he got covid in February 2021, but cannot be entirely sure of that. Vitals in the ED were BP of 156/74, RR of 18, AK of 66 and he was saturating at 97% on room air. CBC was unremarkable and BMP was significant for Cr of 1.46, which is around his baseline. CT of the brain was negative for stroke and CTA of the head and neck was negative for any evidence of hemodynamically significant stenosis. Telestroke neurology reviewed him and recommended further workup for stroke and initiation of aspirin. He is being admitted to be managed for probable TIA, to rule out a stroke. [facility] Medical History Acute hypoxemic respiratory failure due to COVID-19 COVID-19 Diabetes Ex-smoker Hypertension Hypothyroidism Home Medications cholecalciferol (vitamin D3) 100 mcg PO DAILY 02/19/21 [History Last Taken 02/19/21] lisinopril 30 mg PO DAILY 02/19/21 [History Last Taken 06/13/21 09:00] metformin 500 mg PO BID 02/19/21 [History Last Taken 06/12/21 08:00] atorvastatin 40 mg PO DAILY 06/13/21 [History Last Taken 06/12/21 22:00] Allergy/AdvReac Type Severity Reaction Status Date / Time No Known Allergies Allergy Verified 06/13/21 10:18 Family History (Updated 06/14/21 @ 13:[address] Anisha Nava MD) Brother CVA (cerebral vascular accident) Father CVA (cerebral vascular accident) Social History Smoking Status: Former smoker substance use type: does not use ROS Constitutional Constitutional: Denies anorexia, change in weight, chills, fatigue, fever(s), malaise or weakness Eyes Eyes: Reports change in vision and double vision ENT HEENT: Denies abnormal hearing, ear pain, headache(s), hearing loss, nasal congestion, nasal discharge, sinus pressure or sore throat Cardiovascular Cardiovascular: Denies chest pain, dyspnea on exertion, edema, lightheadedness, orthopnea, palpitations, paroxysmal nocturnal dyspnea or rapid heart rate Respiratory/Chest Respiratory/Chest: Denies cough, dyspnea, shortness of breath at rest or shortness of breath with exertion Gastrointestinal Gastrointestinal: Denies abdominal pain, diarrhea, melena, nausea or vomiting Genitourinary Genitourinary: Denies burning urination, urinary hesitancy or urinary incontinence Musculoskeletal Musculoskeletal: Denies arthralgias Neurologic Neurologic: Denies abnormal gait, confusion, disequilibrium, dizziness, focal weakness, headache(s), numbness, seizure-like activity, seizures, syncope, tingling or tremor(s) Psychiatric Psychiatric: Denies anxiety or depression Endocrine Endocrinology: Denies change in body appearance Hematologic/Lymphatic Hematologic/Lymphatic: Denies anemia Vital Signs Vital Signs Vital Signs: 06/13/21 10:19 06/13/21 10:30 06/13/21 10:38 Temperature 96.9 F L Temperature Source Temporal Pulse Rate 58 L 68 Respiratory Rate 17 17 Blood Pressure 161/88 H 172/106 H Blood Pressure Mean 112 128 Pulse Ox 97 97 98 Oxygen Delivery Method Room Air Room Air Room Air 06/13/21 11:18 06/13/21 12:00 06/13/21 13:00 Temperature Temperature Source Pulse Rate 61 61 66 Respiratory Rate 17 17 18 Blood Pressure 134/93 H 128/78 H 156/74 H Blood Pressure Mean 106 94 101 Pulse Ox 96 96 97 Oxygen Delivery Method Room Air Room Air Weight Weight: 175 lb 0.752 oz Body Mass Index (BMI) 26.6 Physical Exam Const alert, oriented x3 and no apparent distress General Appearance: cooperative HEENT normocephalic, head/scalp atraumatic, hearing grossly normal bilaterally and moist oral mucous membranes Eyes PERRL, EOMs intact bilaterally and conjunctivae normal Neck no lymphadenopathy, supple and no JVD Resp normal respiratory effort, no retractions, no use of accessory muscles and clear to auscultation bilaterally Cardio regular rate, regular rhythm, S1 normal heart sound, S2 normal heart sound and no murmurs GI normal to inspection, nondistended, normoactive bowel sounds, soft to palpation, non-tender and non-distended Extremity normal to inspection, full ROM and no clubbing, cyanosis or edema Peripheral Pulses: Yes pulses 2+ throughout Skin no rashes or lesions noted Neuro oriented x3, CN's II-XII intact bilaterally and moves all extremities Sensorium / Orientation: awake and alert Psych affect normal Results Lab / Micro Data Result Diagrams: 06/14/21 05:38 06/14/21 05:38 Labs: Laboratory Results - last 24 hr 06/13/21 10:30: WBC 10.8, RBC 5.12, Hgb 15.3, Hct 47.0, MCV 91.8, MCH 29.9, MCHC 32.6, RDW Std Deviation 44.2 H, RDW Coeff of Dede 13.1, Plt Count 251, MPV 9.8, Immature Gran % (Auto) 0.300, Neut % (Auto) 57.9, Lymph % (Auto) 28.2, [place] % (Auto) 10.1 H, Eos % (Auto) 3.1, Baso % (Auto) 0.4, Absolute Neuts (auto) 6.3, Absolute Lymphs (auto) 3.05, Nucleated RBC % 0 06/13/21 10:30: PT 13.8, INR 1.1, APTT 30.6 06/13/21 10:30: Sodium 140, Potassium 4.1, Chloride 108 H, Carbon Dioxide 25.0, Anion Gap 7, BUN 12, Creatinine 1.46 H, Estim Creat Clear Calc 44.25, Est GFR (MDRD) Af Amer 61, Est GFR (MDRD) Non-Af 50 L, BUN/Creatinine Ratio 8.2 L, Glucose 141 H, Calcium 9.5, Troponin I High Sens 10 06/13/21 10:35: POC Glucose 137 H Radiology Impression Brain CT 06/13/21 10:34 IMPRESSION: Chronic involutional changes of the brain. N.B. : The above Results were Read Back by Bruno Soriano MD to PATRICK FERNANDEZ and understanding confirmed on 06/13/2021 11:03:28 (ET). Electronically Signed: Bruno Soriano MD at 11:04 EST , ADDENDUM: 06/13/21 1111 IMPRESSION: Chronic involutional changes of the brain. N.B. : The above Results were Read Back by Bruno Soriano MD to PATRICK FERNANDEZ and understanding confirmed on 06/13/2021 11:03:28 (ET). Electronically Signed: Bruno Soriano MD at 11:04 EST , Head/Neck CTA 06/13/21 10:35 IMPRESSION: Normal CTA Head and neck with contrast. N.B. : The above Results were Read Back by Bruno Soriano MD to PATRICK FERNANDEZ and understanding confirmed on 06/13/2021 11:40:54 (ET). Electronically Signed: Bruno Soriano MD at 11:42 EST , ADDENDUM: 06/13/21 1149 IMPRESSION: Normal CTA Head and neck with contrast. N.B. : The above Results were Read Back by Bruno Soriano MD to PATRICK FERNANDEZ and understanding confirmed on 06/13/2021 11:40:54 (ET). Electronically Signed: Bruno Soriano MD at 11:42 EST , Chest X-Ray 06/13/21 10:58 IMPRESSION: Normal x-ray examination of the chest. Electronically Signed: Bruno Soriano MD at 11:09 EST , Assessment & Plan Assessment/Plan (1) TIA (transient ischemic attack): PLAN: #Diplopia and unsteady gait, concerning for TIA * symptoms had resolved at time of arrival in ED * CT of the brain is negative nfor stroke and CTA of the head and neck is also normal * admit to PCu * MRI of the brain without contrast * check 2D echo * PO aspirin 81mg daily.; Continue high intensity aspirin * PT/OT consult. * check A1C and lipid panel * continue high intensity statin * #Hypertension: On lisinopril. Hold lisinopril for now to allow for permissive hypertension in light of probability of stroke #Hyperlipidemia: Atorvastatin 40 mg daily. Lipid panel pending. #Type 2 diabetes mellitus: * Hold Metformin as he just got a contrasted CT. Insulin sliding scale. Accu- Cheks AC at bedtime. Check A1c. DVT prophylaxis: Lovenox CODE STATUS: full code * Patient counseled extensively about different types of CODE STATUS including full code, DNR CCA and DNR CCA. Patient elects to be full code. * Total [id number] time 17 minutes. Charges/Coding Visit Charges OBSV E&M: 02194 Initial observation care L2 Procedures Hospitalists Procedures: 28607 Advncd Care Plan 30 Min
--- NOTE | 2021-06-13 13:12 | NURSING ---
DR FUNMILAYO CASTORENA
--- NOTE | 2021-06-13 13:18 | NURSING ---
PCU OBS TIA [facility]
--- NOTE | 2021-06-13 14:09 | ECHOD_ITS ---
Reason For Study: TIA/CVA Procedure This was a 2D Doppler, Color Flow transthoracic echocardiogram. Exam performed portable in patient room. Left Ventricle Normal left ventricle. The estimated ejection fraction is 50-55 %. Right Ventricle Normal right ventricle. Normal systolic function. Atria The left atrium is mildly enlarged. Normal right atrium. Bubble contrast study negative for right to left interatrial shunt. Mitral Valve Trivial mitral valve insufficiency. Tricuspid Valve Normal tricuspid valve. No tricuspid valve insufficiency. Aortic Valve Mild diffuse aortic valve thickening. Mild (1+) aortic valve insufficiency. Pulmonic Valve The pulmonic valve is not well visualized. Great Vessels Normal aortic root. Pericardium/Pleural No pericardial effusion. Medication Performed a rapid injection of agitated mix of 9 cc saline and 1cc air to assess for atrial septal defect. MMode/2D Measurements & Calculations LVIDd: 5.1 cm IVSd: 0.92 cm Ao root diam: 3.0 cm LVIDs: 3.2 cm LVPWd: 1.0 cm RVDd: 2.5 cm FS: 37.8 % LAV(MOD-bp): 49.6 ml LA A4 area: 18.3 cm2 LA dimension(2D): 4.1 cm LAV(MOD-bp) Indexed: 25.7 ml/m2 LAV(MOD-sp2): 46.3 ml LAV(MOD-sp4): 50.6 ml RA A4 area: 12.0 cm2 Time Measurements MV dec time: 0.15 sec Doppler Measurements & Calculations MV E max ajson: 37.1 cm/sec Lat Peak E' Jason: 6.6 cm/sec Med Peak E' Jason: 4.9 cm/sec MV A max jason: 67.8 cm/sec E/E' lat: 5.6 E/E' med: 7.6 MV E/A: 0.55 Ao V2 max: 118.6 cm/sec LV V1 max: 85.9 cm/sec PA V2 max: 136.5 cm/sec Ao max P.6 mmHg LV V1 max P.0 mmHg ECHO/Echo Complete Interpretation Summary The estimated ejection fraction is 50-55 %. Grade #1Mild AI Ordering Physician: Anisha Nava Referring Physician: Willie Norton Performed By: Asia Page, EIMLEE, RVT
--- NOTE | 2021-06-13 14:09 | MRI_ITS ---
EXAM: MR HEAD WITHOUT INTRAVENOUS CONTRAST : 1950 CLINICAL INDICATION: TIA TECHNIQUE: Multiplanar and multisequence MR images of the brain were obtained without intravenous contrast. This report was created using [employer] report generation technology. COMPARISON: CT brain June 13, 2021 FINDINGS: BRAIN AND EXTRA-AXIAL SPACES: Mild increased T2 signal intensity within the cerebral white matter consistent with gliosis/chronic microvascular disease. No intra- or extra-axial hemorrhage. No evidence of acute infarct. No intracranial mass or mass effect. There is preservation of the boyd/white matter interface. Posterior fossa structures are unremarkable. Ventricles are appropriate for age. No hydrocephalus. Basal cisterns are patent. SELLA: Unremarkable. Normal sella turcica, pituitary gland, infundibular stalk, optic chiasm and hypothalamus. AUDITORY SYSTEM: Unremarkable. The internal auditory canals are patent. BONES/JOINTS: Unremarkable. No discrete lytic or blastic abnormalities. SINUSES: Mucous retention cysts are noted within both maxillary sinuses. MASTOID AIR CELLS: Unremarkable as visualized. Clear. ORBITS: Unremarkable as visualized. Both globes, extraocular muscles, optic nerves and retrobulbar fat appear unremarkable. VASCULATURE: Unremarkable as visualized. Normal flow voids in the major intracranial circulation. MRI/Brain without Contrast IMPRESSION: No acute intracranial abnormality. at 1559 Reported and signed by: Humberto Ng MD Electronically Signed: Humberto Ng MD at 15:58 EST ,
[2021-06-13 14:46] LABS: Troponin-I HS 12 pg/mL (3.0-78.0)
[2021-06-13 14:46] LABS: Hemoglobin A1c 6.5 % (3.8-5.6)
[2021-06-13] MEDS: Aspirin 325 MG Tablet PO (16:19)
[2021-06-13 16:27] LABS: Bedside Glucose 142 mg/dL (74-106)
[2021-06-13 21:27] LABS: Magnesium 1.9 mg/dL (1.6-2.6)
[2021-06-13] MEDS: Atorvastatin Calcium 40 MG Tablet PO (22:00)
[2021-06-14] VITALS (7 sets, daily range): BP systolic 102–150; BP diastolic 82–90; PULSE 59–73; RESP 16–18; TEMP 36.1–36.8; O2SAT 94–97; BMI 25.9
[2021-06-14 00:26] LABS: Bedside Glucose 95 mg/dL (74-106)
[2021-06-14 05:48] LABS: Absolute Lymphocyte Count 2.79 X10^3/uL (0.83-4.51); Absolute Neutrophil Count 6.7 X10^3/uL (2.0-7.7); Basophil# 0.04 X10^3/uL; Basophil% 0.4 % (0-1); Eosinophil# 0.36 X10^3/uL; Eosinophils% 3.3 % (0-5); Hematocrit 43.7 % (40-54); Hemoglobin 14.6 g/dL (13.0-16.5); Lymphocyte # 2.79 X10^3/ul (0.83-4.51); Lymphocyte % 25.2 % (19-41); Mean Corp Hgb Conc 33.4 g/dL (32-36); Mean Corpuscular Hgb 30.5 pg (27.0-32.0); Mean Corpuscular Volume 91.4 fL (80-94); Mean Platelet Vol. 9.8 fl (6.2-12.0); Monocyte# 1.08 X10^3/uL; Monocyte% 9.8 % (0-10); NRBC Flagged by Analyzer 0 % (0-5); Neutrophil # 6.73 X10^3/uL (2.7-7.7); Neutrophil % 60.8 % (47-70); Platelet Count 233 K/mm3 (150-450); RBC Distribution Width CV 12.8 % (11.6-14.6); RBC Distribution Width SD 43.4 fl (35.1-43.9); Red Blood Count 4.78 M/mm3 (4.6-6.2); White Blood Count 11.1 K/mm3 (4.4-11.0)
[2021-06-14 06:29] LABS: Anion Gap 5 (5-15); BUN 17 mg/dL (7-18); BUN/Creat Ratio 12.5 RATIO (10-20); Calcium,Total 8.7 mg/dL (8.5-10.1); Chloride 108 mmol/L (98-107); Cholesterol 85 mg/dL (200); Creatinine, Serum 1.36 mg/dL (0.70-1.30); EST Glomerular Filtration Rate 55 mL/min (>60); Est Glom Filt Rate - Afr Amer 66 mL/min (>60); Glucose 112 mg/dL (74-106); High Density Lipoprotein 37 mg/dL; Potassium 3.8 mmol/L (3.5-5.1); Sodium Level 141 mmol/L (136-145); Triglycerides 142 mg/dL; Very Low Density Lipoprotein 28 mg/dL (5-40)
[2021-06-14 06:41] LABS: Bedside Glucose 133 mg/dL (74-106)
[2021-06-14] MEDS: Cholecalciferol (VIT D3) 25 MCG TABLET (1,000 UNITS) 100 MCG PO (09:10)
[2021-06-14] MEDS: Enoxaparin 40 MG/0.4 ML Syringe SC (09:11)
[2021-06-14] MEDS: Aspirin 81 MG TAB.CHEW PO (09:11)
--- NOTE | 2021-06-14 11:38 | PCM.DC ---
Discharge Instructions Diet Discharge Diet: Low fat / Low cholesterol, 1800 Calorie Control Diet and 2000 mg Sodium Diet Activity Discharge Activity: Return to Normal Activity and May Not Drive Dressing / Incision Call your doctor if you observe: Fever of 101 or Higher, Coldness, Increased Pain, Numbness or Tingling, Change in Color, Inability to urinate, Inability to have a bowel movement, Shortness of breath, Dizziness, Fainting spells, Swelling in the ankles, Chest pain, Prolonged hiccupping, Increased palpitations (irregular heartbeat), Calf discomfort and Uncontrolled pain Follow Up Care Test Results: Test results from this visit will be discussed in further detail at your follow-up appointment, if applicable. Discharge Plan Admission Admit Date/Time: 06/13/21 13:20 Primary Reason for Your Visit: Diplopia, unsteady gait Attending Provider: Shankar Anne Primary Care Provider: Willie Norton Discharge Orders/Prescriptions Prescriptions: New aspirin 81 mg Tablet,Chewable 81 mg PO BREAKFAST Qty: 30 RF: 2 Continued cholecalciferol (vitamin D3) 50 mcg (2,000 unit) Capsule 100 mcg PO DAILY RF: 0 atorvastatin 40 mg tablet 40 mg PO DAILY RF: 0 metformin 500 mg Tablet 500 mg PO BID Qty: 0 RF: 0 lisinopril 20 mg tablet 30 mg PO DAILY Qty: 0 RF: 0 Referrals / Follow Up: Willie Norton MD [Primary Care Provider] - Disposition Disposition (needs filled in before D/C Order can be placed): Home, Self Care
[2021-06-14] MEDS: Insulin Lispro 100 UNIT/ML INSULN.PEN SC (11:51)
[2021-06-14 11:55] LABS: Bedside Glucose 160 mg/dL (74-106)
--- NOTE | 2021-06-14 12:42 | CASEMGMT ---
Social Work Pt with diagnosis of TIA therefore PHQ9 depression screen completed. Score of 05/05 indicating minimal depression. Pt educated on corelation between stroke/TIA and depression. Pt understanding and with not concerns at this time. AVELINA Morley
--- NOTE | 2021-06-14 13:10 | CASEMGMT ---
RN HAIDER NOTE: RN CM to room to talk w/pt and , who is at bedside. Introduced self and role of CHARLEEN MALONEY. Pt states he lives @ home w/his and is independent. He and were made aware PT/OT evals were ordered. He does not feel that he needs or wants therapy to see him, stating he has not been unsteady since admission and has been getting up in room ad maria r w/out difficulty. He reports that any unsteadiness resolved before he arrived to the ED. He denies having any concerns w/going home @ discharge and denies having any discharge needs. Pt and made aware, if any questions/concern/needs arise, to ask for CM. They voice understanding. Sesar RUSSN CHARLEEN MALONEY
--- NOTE | 2021-06-14 14:19 | CASEMGMT ---
CHARLEEN MALONEY in to discuss [employer] form with patient. RN HAIDER explained [employer] form, patient voiced understanding. Patient signed [employer] form and filed in chart. Patient provided with copy of signed [employer] form. Patient had no further questions or concerns at this time.
--- NOTE | 2021-06-14 15:44 | DS.PCM_ITS ---
Providers Date of Admission: 06/13/21 Date of Discharge: 06/14/21 Primary Care Physician: Dr. Willie Norton MD Reason For Visit: TIA Diagnosis Discharge Diagnosis (1) TIA (transient ischemic attack): Status: Acute Code(s): G45.9 - Transient cerebral ischemic attack, unspecified Medications at Discharge Home Medications cholecalciferol (vitamin D3) 100 mcg PO DAILY 02/19/21 atorvastatin 40 mg PO DAILY 06/13/21 aspirin 81 mg PO BREAKFAST #30 tab 06/14/21 clopidogrel [Plavix] 75 mg PO DAILY #21 tab 06/14/21 lisinopril 30 mg PO DAILY #0 tab 06/14/21 metformin 500 mg PO BID #0 tab 06/14/21 Hospital Course Summary of Care Provided Hospital Course: This 71-year-old gentleman was admitted on 06/13 with dizziness, unsteady gait and diplopia. He is last known well was about 8:30 AM on the day of admission, 06/13. Patient was admitted in PCU. Head and neck CTA reported normal. MRI brain was done shows no acute intracranial abnormality. 2D echo done but not reported. SOC recommended for hemispheric TIA or mild stroke DAPT for 3 weeks then aspirin 81 daily. A1c 6.5% fasting profile LDL 20, triglyceride 142, HDL 37. Glucose 160. Patient is discharged on DAPT aspirin and Plavix for 3 weeks and then continue aspirin 81 mg daily indefinitely. Patient already on atorvastatin 40 mg daily and fasting drawl within normal limit. 2D echo completed and bubble contrast study negative for [id number] interatrial shunt. Mild LA enlargement blood pressure 150/90. Follow-up with neurology as an outpatient Other comorbidities include Hypertension: Blood pressure acceptable for permissive hypertension. Lisinopril resumed #Hyperlipidemia: Atorvastatin 40 mg daily. As mentioned above #Type 2 diabetes mellitus: A1c 6.5%. Continue Metformin from tomorrow AM. Follow-up PCP. DVT prophylaxis: Lovenox CODE STATUS: full code Discharge medication reconciliation done. Discharge follow-up instructions completed. Discharge process discussed with the patient and all questions were answered to patient's satisfaction. Total time spent, exact 35 minutes on discharge meds reconciliation, examination, coordination of care with nurses and ancillary staff, review of imaging and blood test and discussion with the patient on follow-up instructions. Physical Exam Narrative Patient admitted with diplopia, dizziness and unsteady gait. Diplopia has resolved. MRI brain and CT head and neck are negative. General: Alert, Oriented x3, Cooperative HEENT: Atraumatic, PERRLA, EOMI, Normocephalic Oral: No Gingival or Mucosal Lesions/ Ulcerations Neck: Supple, No JVD, Negative Carotid Bruits Lungs: Air entry diminished in bilateral lung bases. No crepitation/rhonchi Cardiovascular: External event monitor from outpatient. Sinus rhythm with PVCs, Normal S1, Normal S2, No murmurs Abdomen: Bowel Sounds Present, Soft, Non Tender, Non-Distended : No renal angle tenderness. No suprapubic tenderness. Extremities: No edema, Capillary Refill Less than 3 Seconds Skin: No rashes, No breakdown Musculoskeletal: No Tenderness to Palpation of Joints or Extremities Neurological: Cranial nerves II-XII grossly intact, DTR 2+/4 and Symmetrical, Neuro grossly intact Psych/Mental Status: Normal Affect, Appropriate Weight / BMI Weight Weight: 170 lb 10.205 oz Body Mass Index (BMI) 25.9 ABG / Lab / Microbiology Data Result Diagrams: 06/14/21 05:38 06/14/21 05:38 Laboratory: Laboratory Results - last 24 hr 06/13/21 14:23: Magnesium 1.9 06/13/21 16:18: POC Glucose 142 H 06/13/21 21:59: POC Glucose 95 06/14/21 05:38: WBC 11.1 H, RBC 4.78, Hgb 14.6, Hct 43.7, MCV 91.4, MCH 30.5, MCHC 33.4, RDW Std Deviation 43.4, RDW Coeff of Dede 12.8, Plt Count 233, MPV 9.8, Immature Gran % (Auto) 0.500, Neut % (Auto) 60.8, Lymph % (Auto) 25.2, [place] % (Auto) 9.8, Eos % (Auto) 3.3, Baso % (Auto) 0.4, Absolute Neuts (auto) 6.7, Absolute Lymphs (auto) 2.79, Nucleated RBC % 0 06/14/21 05:38: Sodium 141, Potassium 3.8, Chloride 108 H, Carbon Dioxide 28.0, Anion Gap 5, BUN 17, Creatinine 1.36 H, Estim Creat Clear Calc 47.50, Est GFR (MDRD) Af Amer 66, Est GFR (MDRD) Non-Af 55 L, BUN/Creatinine Ratio 12.5, Gl ucose 112 H, Calcium 8.7, Triglycerides 142, Cholesterol 85, LDL Cholesterol 20, VLDL Cholesterol 28, HDL Cholesterol 37 L 06/14/21 06:32: POC Glucose 133 H 06/14/21 11:44: POC Glucose 160 H Radiography Diagnostic Testing: Radiology Impression Brain MRI 06/13/21 14:09 IMPRESSION: No acute intracranial abnormality. at 1559 Reported and signed by: Humberto Ng MD Electronically Signed: Humberto Ng MD at 15:58 EST , D/C Instructions Discharge Diet: Low fat / Low cholesterol, 1800 Calorie Control Diet and 2000 mg Sodium Diet Call your doctor if you observe: Fever of 101 or Higher, Coldness, Increased Pain, Numbness or Tingling, Change in Color, Inability to urinate, Inability to have a bowel movement, Shortness of breath, Dizziness, Fainting spells, Swelling in the ankles, Chest pain, Prolonged hiccupping, Increased palpitations (irregular heartbeat), Calf discomfort and Uncontrolled pain Meaningful Use Info Meaningful Use Diagnoses (Choose all that apply): None applicable Discharge Plan Admission Admit Date/Time: 06/13/21 13:20 Primary Reason for Your Visit: Diplopia, unsteady gait Attending Provider: Shankar Anne Primary Care Provider: Willie Norton Instructions Additional Instructions / Restrictions: Patient Problems: Altered Health Status related to Hospitalization Patient Goals: *Optimal Level of Health *Keep Appointments *Medication Compliance *Remain Safe Discharge Orders/Prescriptions Prescriptions: New aspirin 81 mg Tablet,Chewable 81 mg PO BREAKFAST Qty: 30 RF: 2 clopidogrel [Plavix] 75 mg tablet 75 mg PO DAILY Qty: 21 RF: 0 Continued cholecalciferol (vitamin D3) 50 mcg (2,000 unit) Capsule 100 mcg PO DAILY RF: 0 atorvastatin 40 mg tablet 40 mg PO DAILY RF: 0 metformin 500 mg Tablet 500 mg PO BID Qty: 0 RF: 0 lisinopril 20 mg tablet 30 mg PO DAILY Qty: 0 RF: 0 Referrals / Follow Up: Willie Norton MD [Primary Care Provider] - Ciro Gonzales MD [STAFF PHYSICIAN] - Within 2 Weeks Disposition Disposition (needs filled in before D/C Order can be placed): Home, Self Care Charges/Coding Visit Charges OBSV E&M: 28683 Observation care discharge
== END 2021-06-14 11:41 | disposition home or self-care (01) ==
LOC: ED 13:31 → PCU 13:38
PROVIDERS: Nurse Practitioner Family; Admitting Provider Student in an Organized Health Care Education/Training Program; Emergency Provider Emergency Medicine; PCP Family Medicine; Visit Provider Internal Medicine
DX: G45.9 Transient cerebral ischemic attack, unspecified (principal); E11.9 Type 2 diabetes mellitus without complications; E78.5 Hyperlipidemia, unspecified; R26.81 Unsteadiness on feet; I10 Essential (primary) hypertension; Z79.84 Long term (current) use of oral hypoglycemic drugs; H53.2 Diplopia; Z87.891 Personal history of nicotine dependence; Z79.899 Other long term (current) drug therapy; Z86.16 Personal history of COVID-19; R29.700 NIHSS score 0
CPT/HCPCS: 36415; 70450; 70496; 70498; 70551; 71045; 80048; 80061; 82962; 83036; 83735; 84484; 85025; 85610; 85730; 93005; 93306; 94762; 96372; 99218; 99285; 99406; Q9967; A4216; G0378

== ENCOUNTER 2021-07-02 10:32 | Outpatient (CLI) | payer MEDICARE, OTHER, SELFPAY ==
[2021-07-02 12:25] LABS: Absolute Lymphocyte Count 2.46 X10^3/uL (0.83-4.51); Absolute Neutrophil Count 5.6 X10^3/uL (2.0-7.7); Basophil# 0.03 X10^3/uL; Basophil% 0.3 % (0-1); Eosinophil# 0.26 X10^3/uL; Eosinophils% 2.8 % (0-5); Hematocrit 46.6 % (40-54); Hemoglobin 15.3 g/dL (13.0-16.5); Lymphocyte # 2.46 X10^3/ul (0.83-4.51); Lymphocyte % 26.4 % (19-41); Mean Corp Hgb Conc 32.8 g/dL (32-36); Mean Corpuscular Hgb 30.5 pg (27.0-32.0); Mean Platelet Vol. 10.5 fl (6.2-12.0); Monocyte# 0.95 X10^3/uL; Monocyte% 10.2 % (0-10); NRBC Flagged by Analyzer 0 % (0-5); Neutrophil # 5.57 X10^3/uL (2.7-7.7); Neutrophil % 59.8 % (47-70); Platelet Count 238 K/mm3 (150-450); RBC Distribution Width CV 12.9 % (11.6-14.6); RBC Distribution Width SD 43.9 fl (35.1-43.9); Red Blood Count 5.01 M/mm3 (4.6-6.2); White Blood Count 9.3 K/mm3 (4.4-11.0)
[2021-07-02 12:47] LABS: Vitamin D,25 Hydroxy 66.1 ng/mL
[2021-07-02 12:58] LABS: ALB/GLOB Ratio 1.2 RATIO (0.9-2.4); AST(SGOT) 12 U/L (15-37); Alanine Aminotransfer ALT/SGPT 23 U/L (16-61); Albumin, Serum 3.8 g/dL (3.2-5.0); Alkaline Phosphatase 68 U/L (45-117); Anion Gap 7 (5-15); BUN 25 mg/dL (7-18); BUN/Creat Ratio 17.7 RATIO (10-20); Calcium,Total 9.1 mg/dL (8.5-10.1); Chloride 109 mmol/L (98-107); Cholesterol 107 mg/dL (200); Creatinine, Serum 1.41 mg/dL (0.70-1.30); EST Glomerular Filtration Rate 53 mL/min (>60); Est Glom Filt Rate - Afr Amer 64 mL/min (>60); Globulin 3.3 g/dL (2.2-4.2); Glucose 127 mg/dL (74-106); High Density Lipoprotein 40 mg/dL; Potassium 4.2 mmol/L (3.5-5.1); Protein, Total 7.1 g/dL (6.4-8.2); Sodium Level 140 mmol/L (136-145); T4 Free Direct 1.07 ng/dL (0.76-1.46); Thyroid Stim Hormone (TSH) 3.13 uIU/mL (0.358-3.74); Triglycerides 124 mg/dL; Very Low Density Lipoprotein 25 mg/dL (5-40)
== END 2021-07-02 23:59 | disposition home or self-care (01) ==
LOC: MFPLAB 10:34
PROVIDERS: PCP Family Medicine; Visit Provider Family Medicine
DX: I10 Essential (primary) hypertension (principal); E11.9 Type 2 diabetes mellitus without complications; E55.9 Vitamin D deficiency, unspecified; E03.9 Hypothyroidism, unspecified
CPT/HCPCS: 36415; 80053; 80061; 82306; 84439; 84443; 85025

== ENCOUNTER → 2021-08-08 | Outpatient (CLI) | payer MEDICARE, OTHER, SELFPAY ==
--- NOTE | 2021-08-08 15:28 | STRESSREP ---
Stress Test Report Exercise myocardial perfusion stress test. 71-year-old man with a history of hypertension hyperlipidemia diabetes mellitus and chest pain. Stress protocol. Resting EKG demonstrates normal sinus rhythm with a rate of 60 bpm normal intervals are noted resting blood pressure is 118/70 mmHg. Patient exercised according to regular Haseeb protocol for total duration of 6 minutes and 15 seconds. The maximum heart rate was 130 bpm which was 87% of max impact at heart rate the maximum workload was 7.7 metabolic equivalents. Patient completed 16 seconds into stage III of the Haseeb protocol. At rest there were no ST or T wave to suggest ischemia. At peak exercise there were no ST or T wave changes noted to suggest ischemia. The peak blood pressure is 142/70 mmHg. The test was terminated due to the target heart rate being achieved. Myocardial perfusion protocol. 12.0 mCi of technetium 99m sestamibi was injected at rest. The patient exercised according to regular Haseeb protocol. At peak exercise 34.3 mCi of technetium 99m sestamibi was injected stress images were obtained stress and rest images were reconstructed and compared in the short axis vertical long and horizontal long axis. Perfusion SPECT analysis: Review of the stress images demonstrate normal uptake of tracer noted in all areas of the myocardium. The resting images similarly demonstrate normal uptake of tracer noted in all areas of the myocardium. No areas of reversibility are noted to suggest ischemia and no previous infarct is noted. Gated images could not be obtained. Conclusion: Normal exercise myocardial perfusion stress test at a moderate workload.
== END | disposition home or self-care (01) ==
LOC: CVS 07:16
PROVIDERS: PCP Family Medicine; Visit Provider Internal Medicine Cardiovascular Disease
DX: I25.10 Atherosclerotic heart disease of native coronary artery without angina pectoris (principal); I49.3 Ventricular premature depolarization
CPT/HCPCS: 78452; 93017; A9500; A4216